=== PATIENT | female | born 1955 | race Caucasian/White ===

== ENCOUNTER 2017-02-12 06:23 | Inpatient (IN) ==
[2017-02-12] MEDS ORDERED: Albuterol 2.5 MG/3 ML NEBULIZER ONE (06:52)
--- NOTE | 2017-02-12 07:07 | Anesthesia Evaluation PreOp ---
Date of Encounter: 02/12/17 Time of Encounter: 07:05 - Past History Planned Operation: EGD Cardiac History: CO, CHF, Hyperlipidemia, Cardiac Surgery (CABGx3), Cardiac Stent, Other (CAD) Pulmonary History: Denies Any Significant HX, Smoker, Pack/yr (2ppd 40+ years), COPD, TERESE Dx EGG GRADER History: Other (peripheral neuropathy, Depression/Anxiety) Other Medical History: Renal (satage III CRD, Stones), Diabetes Type II, GERD Anesthesia History: Past Anesthesia (CABG, tubal, B. TKR, [place], Bladder Tuck, EGD) : No Alcohol Use: none Drug use: none Medications and Allergies Unable To Obtain [Unable to Obtain] 02/12/17 [History] Allergies fenofibrate Adverse Reaction (Verified 02/12/17 07:04) Muscle Pain metformin Adverse Reaction (Verified 02/12/17 07:04) Diarrhea Oxycodone [From OxyContin] Adverse Reaction (Verified 02/12/17 07:04) Hallucinating rosuvastatin [From Crestor] Adverse Reaction (Verified 02/12/17 07:04) Muscle Pain Ggxcmim-Ufh-Hdb Reductase Inhibitor [Statins] Adverse Reaction (Verified 07:04) Muscle Pain - Meds/Allergy Pre-op Review Medications Reviewed: Yes Allergies Reviewed: Yes Beta Blockers on Current Med List: Yes If Beta Blockers taken, Date/Time (Last Dose taken): none taken for months Anesthesia Results - Labs Laboratory Tests 11/08/15 09/04/16 09/04/16 15:51 16:19 16:19 WBC 13.7 H Hgb 14.8 Hct 45.5 H Plt Count 338 Sodium 137 Potassium 4.6 H Chloride 102 Carbon Dioxide 25 BUN 6 L Creatinine 1.00 - Imaging EKG: image reviewed (SR pvc's, IRBBB, poss old INf CO) Anesthesia Exam O2 Sat Height 1.68 m Height 1.68 m Height 1.68 m Weight 110.223 kg Weight 110.223 kg Weight 110.223 kg O2 Sat by Pulse Oximetry 92 O2 Sat by Pulse Oximetry 92 Vital Signs Temp Pulse Resp BP Pulse Ox 98.8 F 87 18 140/82 92 L 02/12/17 06:45 02/12/17 06:45 02/12/17 06:45 02/12/17 06:45 02/12/17 06:45 - HEENT Pupil (Motor): Pupils equal, EOMI Mallampati: III Teeth: Edentulous Oral Opening: Greater than 3 - EGG GRADER LOC: Oriented EGG GRADER Motor: Normal RUE, Normal LUE, Normal RLE, Normal LLE, Normal Face EGG GRADER Sensory: Normal: RUE, LUE, RLE, LLE, Face - Cardiac Rhythm: Irregular Murmur: None JVD: No Carotid Bruit: No - Pulmonary Breath Sounds: bilateral Clear Respiratory Effort: Symmetrical Anesthesia Assess/Plan ASA Score: 4 Modified [place] Scale for Level of Consciousness: Cooperative, oriented, and tranquil Anesthetic Plan: MAC Autologous Blood: Yes Monitoring Plan: Standard Monitors Recovery Plan: Other
[2017-02-12] MEDS ORDERED: Ringers Solution, Lactated 1,000 ML IVC SCH (07:15)
[2017-02-12] MEDS ORDERED: *HR* Promethazine 25 MG/ML VIAL IVP ONE (07:37)
--- NOTE | 2017-02-12 07:40 | History & Physical Report ---
Date of Encounter: 02/12/17 Time of Encounter: 07:40 24 Hour HP Update - Instructions Instructions: If the History and Physical is less than 30 days old and was completed prior to A.M. admission and or procedure and has NOT been updated on calendar day of procedure please complete this update prior to performing procedure. - Update Patient reports changes in Medical Condition: Yes Changes in assessment/condition: Yes Changes in Medication: No Preop tests/diagnostics Reviewed: Yes Surgery Remains Indicated: Yes Consent for Planned Operative Procedure(s) Verified: Yes - Pre-Operative Checklist Prophylactic Antibiotic Ordered: No Home Medications Include Beta Ryanne: No Is VTE Prophylaxis Indicated?: NO
[2017-02-12] MEDS ORDERED: Simethicone 40 MG/0.6 ML MLS IR ONE (07:41)
[2017-02-12] MEDS ORDERED: Tetracaine/Benzocaine/Butamben 200MG/SPRAY (100SPY/BOT) MM ONE (07:41)
--- NOTE | 2017-02-12 08:43 | Anesthesia Evaluation Post Op ---
Date of Encounter: 02/12/17 Time of Encounter: 08:41 - Vital Signs Vital Signs: 139/57 hr 90 sp02 97 on 4Lnc - Lungs Lungs: Clear Ascult./Percussion - Airway Airway: Non-obstructed - Cardiovascular Irregular Rate (PVCs), Baseline Rhythm - Mental Status Mental Status: Alert & Oriented, Answers Appropriately - Pain Pain Scale: 0 Pain Scale used: Numeric (1 - 10) - Nausea Vomiting Nausea Vomiting: Not Present - Hydration Hydration: NPO, Has not voided - Discharge PostOp Status: Transfer Patient to floor
[2017-02-12] MEDS ORDERED: Lidocaine -MPF 2% 5 ML VIAL INFILT ONE (09:21)
[2017-02-12] MEDS ORDERED: *HR* Promethazine 25 MG/ML VIAL IVP PRN (09:21)
[2017-02-12] MEDS ORDERED: Ondansetron 4 MG/2 ML VIAL IVP PRN (09:21)
[2017-02-12] MEDS ORDERED: Ondansetron 4 MG/2 ML VIAL IVP ONE (09:21)
[2017-02-12] MEDS ORDERED: *HR* Metoprolol 5 MG/5 ML VIAL IVP PRN (09:21)
[2017-02-12] MEDS ORDERED: Naloxone 0.4 MG/ML INJ IVP PRN (09:21)
[2017-02-12] MEDS ORDERED: *HR* Propofol 200 MG/20 ML VIAL IVP ONE (09:21)
[2017-02-12] MEDS ORDERED: Lidocaine -MPF 1% 5 ML AMPUL INFILT ONE (09:27)
[2017-02-12 09:53] LABS: Basophils # 0.2 K/mcL (0.0-0.2); Basophils % 1.2 %; Eosinophils # 0.2 K/mcL (0.0-0.6); Eosinophils % 1.6 %; Hematocrit 43.2 % (35.3-44.9); Hemoglobin 13.9 g/dL (11.5-15.4); Immature Granulocytes % 0.5 % (0-4); Immature Platelets 5.4 % (1.1-6.1); Lymphocytes % 15.1 %; Mean Corpuscular HGB Conc 32.2 g/dL (31.6-35.5); Mean Corpuscular Hemoglobin 27.1 pg (28.0-33.3); Mean Corpuscular Volume 84.2 fL (83.0-100.0); Mean Platelet Volume 10.2 fL (9.4-12.4); Monocytes # 0.9 K/mcL (0.0-1.3); Monocytes % 6.6 %; Platelet Count 314 K/mcL (140-400); Red Blood Count 5.13 M/mcL (3.82-4.97)
[2017-02-12 10:01] LABS: INR 1.5; Prothrombin Time 15.8 Seconds (9.4-12.1)
[2017-02-12 10:07] LABS: Alanine Aminotransferase 7 Units/L (0-55); Albumin 2.9 g/dL (3.5-5.0); Albumin/Globulin Ratio 0.8 (1.1-2.2); Alkaline Phosphatase 171 Units/L (38-126); Aspartate Amino Transferase 21 Units/L (5-34); BUN/Creatinine Ratio 10 (6-26); Bilirubin,Direct 0.8 mg/dL (0.0-0.5); Bilirubin,Indirect 0.6 mg/dL (0.0-1.2); Bilirubin,Total 1.4 mg/dL (0.2-1.2); Blood Urea Nitrogen 8 mg/dL (7-20); Calcium 8.9 mg/dL (8.6-10.8); Carbon Dioxide 26 mEq/L (19-29); Chloride 99 mEq/L (98-109); Globulin 3.5 g/dL (2.4-3.5); Glucose 103 mg/dL (70-99); Magnesium 1.4 mg/dL (1.6-2.6); Osmolality,Calculated 287 (280-300); Phosphorous 3.8 mg/dL (2.3-4.7); Potassium 2.7 mEq/L (3.5-4.5); Sodium 139 mEq/L (136-145); Total Protein 6.4 g/dL (6.0-8.3); eGFR For African Americans > 60 (> 60); eGFR For Non-African Americans > 60 (> 60)
[2017-02-12] MEDS ORDERED: 0.9 % Sodium Chloride 1,000 ML IVC SCH (10:15)
[2017-02-12] MEDS ORDERED: Potassium Chloride 40 MEQ, Lidocaine 1% 2 ML in D5% in Water 500 ML IVPB ONE (10:41)
[2017-02-12] MEDS ORDERED: Potassium Chloride 20 MEQ, Lidocaine 1% 2 ML in D5% in Water 250 ML IVPB ONE (10:43)
[2017-02-12] MEDS ORDERED: Magnesium Sulfate 2 GM in D5% in Water 100 ML IVPB ONE (10:44)
[2017-02-12] MEDS ORDERED: D5% in 0.45% NACL w KCl 20 MEQ/1,000 ML MLS IVC SCH (10:45)
[2017-02-12] MEDS: *HR* HYDROmorphone (PF) 1 MG/ML SYRINGE IVP PRN ×4 (11:15→20:56)
--- NOTE | 2017-02-12 14:44 | General Surg History&Physical ---
<Jhoana Eckert - Last Filed: 02/12/17 14:39> Date of Encounter: 02/12/17 Time of Encounter: 14:00 Assessment and Plan (1) Mass of esophagus Current Visit: Yes Status: Acute The assessment and plan as outlined above was discussed with the patient and/or family members who expressed understanding and agreement. All questions were answered. May have clear liquid diet PICC line placement TPN start today- Total fluid rate 100ml/hour CT scan of chest/abdomen/pelvis Check labs- CBC, BMP, Hepatic panel, Coags Oncology consults Pathology pending Will likely need J-tube placement (2) Diabetes mellitus Current Visit: Yes Status: Chronic The assessment and plan as outlined above was discussed with the patient and/or family members who expressed understanding and agreement. All questions were answered. Diabetic modifications with clear liquid diet Change MIV to 0.9 Monitor blood sugar Low sliding scale insulin coverage ACHS Will monitor and adjust as necessary Qualifiers: Diabetes mellitus type: type 2 Diabetes mellitus complication status: without complication Diabetes mellitus tank terminal gauger insulin use: without tank terminal gauger use Qualified Code(s): E11.9 - Type 2 diabetes mellitus without complications (3) Obesity (BMI 30-39.9) Current Visit: Yes Status: Chronic The assessment and plan as outlined above was discussed with the patient and/or family members who expressed understanding and agreement. All questions were answered. (4) Sleep apnea Current Visit: Yes Status: Acute The assessment and plan as outlined above was discussed with the patient and/or family members who expressed understanding and agreement. All questions were answered. Consult respiratory CPAP as needed while sleeping Qualifiers: Sleep apnea type: obstructive Qualified Code(s): G47.33 - Obstructive sleep apnea (adult) (pediatric) (5) Hypertension Current Visit: Yes Status: Chronic The assessment and plan as outlined above was discussed with the patient and/or family members who expressed understanding and agreement. All questions were answered. Metoprolol 5mg IV every 6 hours Will continue to monitor and adjust as necessary Qualifiers: Hypertension type: essential hypertension Qualified Code(s): I10 - Essential (primary) hypertension (6) Coronary artery disease Current Visit: Yes Status: Chronic The assessment and plan as outlined above was discussed with the patient and/or family members who expressed understanding and agreement. All questions were answered. Qualifiers: Coronary Disease-Associated Artery/Lesion type: bypass graft Tribe vs. transplanted heart: [place] heart Associated angina: without angina Qualified Code(s): I25.810 - Atherosclerosis of coronary artery bypass graft(s) without angina pectoris (7) DVT prophylaxis Current Visit: Yes Status: Acute The assessment and plan as outlined above was discussed with the patient and/or family members who expressed understanding and agreement. All questions were answered. Heparin 5,000 units SQ twice daily for DVT prophylaxis History of Present Illness Chief complaint: Esophageal mass HPI: Ms. Serra is a 61 year old female who has been seen and evaluated by Dr. Rapp for complaints of epigastric pain, nausea/vomiting, unintentional weight loss. She reports epigastric discomfort for approximately the past 3-5 months. She reports that the pain is worse after eating. She does report episodes of hematemesis. Admits to diarrhea which she describes as green and watery with coffee grounds. Reports being incontinent of stool. Also reports being incontinent of urine. She does have chronic heartburn which she states has been controlled with ranitidine and omeprazole. She reports a 100lb weight loss over the past 3 months which has been untintentional. She is s/p EGD today with Dr. Rapp and was found to have a 15cm distal esophageal mass. She has been admitted to the hospital for further work-up treatment. Past Med Surg Social Fam HX - Past Medical History Source: patient, old records reviewed Medical history: CHF, coronary artery disease, diabetes, hyperlipidemia, hypertension, kidney stones, myocardial infarction, other (obesity, sleep apnea , peripheral neuropathy, osteoarthritis, pancreatitis, allergic rhinitis) Psychiatric history: anxiety, depression - Past Surgical History Surgical History: angioplasty/stent, coronary bypass (CABG), hysterectomy ( complete), knee replacement (bilateral, Right total knee revision), other ( tubal ligation, tonsillectomy, bladder tuck X 2, colonoscopy, EGD 02/12/17) - Social History Smoking Status: Current every day smoker Alcohol use: none Drug use: none Current living situation: Home - Independent Activity Level: Independent ambulation - Family History Mother Living Status: Still Living Hx Family Cardiac Disorders: Yes (HTN) Hx Family Endocrine Disorder: Yes (Thyroid disease) Hx Family Autoimmune Disorders: Yes (Lupus) Father Living Status: Age at : 78 Hx Family Cardiac Disorders: Yes (CAD) Hx Family Endocrine Disorder: Yes (Diabetes mellitus) Hx Family Musculoskeletal Disorders: Yes (Fibromyalgia) Hx Family Neurologic Disorders: Yes (Alzheimers dementia) Brother Living Status: Still Living Hx Family Cardiac Disorders: Yes (HTN) Hx Family Respiratory Disorders: Yes (asthma) Hx Family Endocrine Disorder: Yes (diabetes mellitus) Medications and Allergies No Known Home Drugs 02/12/17 [History] Allergies fenofibrate Adverse Reaction (Verified 02/12/17 07:04) Muscle Pain metformin Adverse Reaction (Verified 02/12/17 07:04) Diarrhea Oxycodone [From OxyContin] Adverse Reaction (Verified 02/12/17 07:04) Hallucinating rosuvastatin [From Crestor] Adverse Reaction (Verified 02/12/17 07:04) Muscle Pain Gmgrfeq-Ulf-Gyg Reductase Inhibitor [Statins] Adverse Reaction (Verified 07:04) Muscle Pain Review of Systems All systems PM: reviewed and no additional remarkable complaints except as stated (in the HPI) All systems PM: A 10-system review of systems was performed and is negative for pertinent findings except as documented above in the HPI. General Surgery Exam Initial Vital Signs Temp Pulse Resp BP Pulse Ox 98.8 F 87 18 140/82 92 L 02/12/17 06:45 02/12/17 06:45 02/12/17 06:45 02/12/17 06:45 02/12/17 06:45 - General physical appearance well developed, no distress, chronically ill, obese - Eyes normal ocular movement - ENT normal mucosa, atraumatic, normocephalic - Neck trachea midline - Respiratory normal respiratory effort, clear to auscultation - Cardiovascular Cardiovascular exam: Present: RRR, 15, 16 - Abdomen Abdomen general surgery: Present: bowel sounds present, soft, tender Abdominal Tenderness: Present: epigastic - Integumentary Integumentary general surgery: Present: warm and dry - Neurologic Present: CN 2-12 grossly intact - Musculoskeletal Present: normal gait, normal posture - Psychiatric Psychiatric general surgery: Present: appropriate, oriented to person, oriented to place, oriented to time, speech is normal, memory intact Results - Labs 02/12/17 09:37 02/12/17 09:37 Abnormal lab results WBC 13.3 K/mcL (4.3-11.1) H 02/12/17 09:37 RBC 5.13 M/mcL (3.82-4.97) H 02/12/17 09:37 MCH 27.1 pg (28.0-33.3) L 02/12/17 09:37 RDW 15.0 % (11.5-14.5) H 02/12/17 09:37 Neutrophils # 10.0 K/mcL (1.6-8.9) H 02/12/17 09:37 PT 15.8 Seconds (9.4-12.1) H 02/12/17 09:37 Potassium 2.7 mEq/L (3.5-4.5) L 02/12/17 09:37 Glucose 103 mg/dL (70-99) H 02/12/17 09:37 Magnesium 1.4 mg/dL (1.6-2.6) L 02/12/17 09:37 Total Bilirubin 1.4 mg/dL (0.2-1.2) H 02/12/17 09:37 Direct Bilirubin 0.8 mg/dL (0.0-0.5) H 02/12/17 09:37 Alkaline Phosphatase 171 Units/L (38-126) H 02/12/17 09:37 Albumin 2.9 g/dL (3.5-5.0) L 02/12/17 09:37 Albumin/Globulin Ratio 0.8 (1.1-2.2) L 02/12/17 09:37 Prealbumin 7.0 mg/dL (16.0-38.0) L 02/12/17 09:37 Diabetes panel 02/12/17 Range/Units 09:37 Sodium 139 (136-145) mEq/L Potassium 2.7 L (3.5-4.5) mEq/L Chloride 99 (98-109) mEq/L Carbon Dioxide 26 (19-29) mEq/L BUN 8 (7-20) mg/dL Creatinine 0.77 (0.57-1.11) mg/dL Glucose 103 H (70-99) mg/dL Calcium 8.9 (8.6-10.8) mg/dL AST 21 (5-34) Units/L ALT 7 (0-55) Units/L Alkaline Phosphatase 171 H (38-126) Units/L Albumin 2.9 L (3.5-5.0) g/dL Calcium panel 02/12/17 Range/Units 09:37 Calcium 8.9 (8.6-10.8) mg/dL Phosphorus 3.8 (2.3-4.7) mg/dL Albumin 2.9 L (3.5-5.0) g/dL Pituitary panel 02/12/17 Range/Units 09:37 Sodium 139 (136-145) mEq/L Potassium 2.7 L (3.5-4.5) mEq/L Chloride 99 (98-109) mEq/L Carbon Dioxide 26 (19-29) mEq/L BUN 8 (7-20) mg/dL Creatinine 0.77 (0.57-1.11) mg/dL Glucose 103 H (70-99) mg/dL Calcium 8.9 (8.6-10.8) mg/dL Adrenal panel 02/12/17 Range/Units 09:37 Sodium 139 (136-145) mEq/L Potassium 2.7 L (3.5-4.5) mEq/L Chloride 99 (98-109) mEq/L Carbon Dioxide 26 (19-29) mEq/L BUN 8 (7-20) mg/dL Creatinine 0.77 (0.57-1.11) mg/dL Glucose 103 H (70-99) mg/dL Calcium 8.9 (8.6-10.8) mg/dL Total Bilirubin 1.4 H (0.2-1.2) mg/dL AST 21 (5-34) Units/L ALT 7 (0-55) Units/L Alkaline Phosphatase 171 H (38-126) Units/L Albumin 2.9 L (3.5-5.0) g/dL All other labs normal. - Attending Attestation I examined this patient and my medical decision-making was reviewed with the HOME THEATER INSTALLER/PA/Advanced Practice Nurse/Resident Physician. I agree with the documented findings, disposition and treatment plan as described except to the extent set forth below. <Reny Rapp - Last Filed: 02/13/17 08:58> Assessment and Plan (1) Mass of esophagus Current Visit: Yes Status: Acute discussed CT scan results with patient, metastatic disease, she is not an operative candidate, will see oncology and see what their recommendations regarding chemo/radiation may be. She may benefit with a palliative peg tube, discussed with patient. Dr Luna is going to assume care in my abscence, patient aware. The assessment and plan as outlined above was discussed with the patient and/or family members who expressed understanding and agreement. All questions were answered. History of Present Illness HPI: Ms. Serra is a 61 year old female Review of Systems All systems PM: A 10-system review of systems was performed and is negative for pertinent findings except as documented above in the HPI. General Surgery Exam Initial Vital Signs Temp Pulse Resp BP Pulse Ox 98.8 F 87 18 140/82 92 L 02/12/17 06:45 02/12/17 06:45 02/12/17 06:45 02/12/17 06:45 02/12/17 06:45 - General physical appearance no distress, no pain, obese - Eyes PERRL, normal ocular movement - ENT normal mucosa, normocephalic - Respiratory normal expansion, clear to auscultation - Cardiovascular Cardiovascular exam: Present: RRR - Abdomen Abdomen general surgery: Present: bowel sounds present, soft, tender Abdominal Tenderness: Present: epigastic - Integumentary Integumentary general surgery: Present: warm and dry - Musculoskeletal Present: normal gait, normal posture - Psychiatric Psychiatric general surgery: Present: A&Ox3, speech is normal, tearful Results - Labs 02/13/17 03:55 02/13/17 03:55 Abnormal lab results WBC 12.2 K/mcL (4.3-11.1) H 02/13/17 03:55 RBC 5.06 M/mcL (3.82-4.97) H 02/13/17 03:55 MCH 26.7 pg (28.0-33.3) L 02/13/17 03:55 MCHC 31.0 g/dL (31.6-35.5) L 02/13/17 03:55 RDW 15.0 % (11.5-14.5) H 02/13/17 03:55 PT 15.8 Seconds (9.4-12.1) H 02/12/17 09:37 Sodium 135 mEq/L (136-145) L 02/13/17 03:55 Potassium 3.3 mEq/L (3.5-4.5) L 02/13/17 03:55 Chloride 96 mEq/L (98-109) L 02/13/17 03:55 POC Glucose 115 (58-89) H 02/13/17 07:19 Calculated Osmolality 278 (280-300) L 02/13/17 03:55 Ionized Calcium 1.11 mmol/L (1.15-1.35) L 02/13/17 03:55 Total Bilirubin 1.4 mg/dL (0.2-1.2) H 02/12/17 09:37 Direct Bilirubin 0.8 mg/dL (0.0-0.5) H 02/12/17 09:37 Alkaline Phosphatase 171 Units/L (38-126) H 02/12/17 09:37 Albumin 2.9 g/dL (3.5-5.0) L 02/12/17 09:37 Albumin/Globulin Ratio 0.8 (1.1-2.2) L 02/12/17 09:37 Prealbumin 7.0 mg/dL (16.0-38.0) L 02/12/17 09:37 Triglycerides 208 mg/dL (< 150) H 02/13/17 03:55 Diabetes panel 02/12/17 02/13/17 Range/Units 09:37 03:55 Sodium 139 135 L (136-145) mEq/L Potassium 2.7 L 3.3 L (3.5-4.5) mEq/L Chloride 99 96 L (98-109) mEq/L Carbon Dioxide 26 29 (19-29) mEq/L BUN 8 7 (7-20) mg/dL Creatinine 0.77 0.85 (0.57-1.11) mg/dL Glucose 103 H 99 (70-99) mg/dL Calcium 8.9 8.6 (8.6-10.8) mg/dL AST 21 (5-34) Units/L ALT 7 (0-55) Units/L Alkaline Phosphatase 171 H (38-126) Units/L Albumin 2.9 L (3.5-5.0) g/dL Triglycerides 208 H (< 150) mg/dL Calcium panel 02/12/17 02/13/17 Range/Units 09:37 03:55 Calcium 8.9 8.6 (8.6-10.8) mg/dL Phosphorus 3.8 3.9 (2.3-4.7) mg/dL Albumin 2.9 L (3.5-5.0) g/dL Pituitary panel 03/21/17 03/22/17 Range/Units 09:37 03:55 Sodium 139 135 L (136-145) mEq/L Potassium 2.7 L 3.3 L (3.5-4.5) mEq/L Chloride 99 96 L (98-109) mEq/L Carbon Dioxide 26 29 (19-29) mEq/L BUN 8 7 (7-20) mg/dL Creatinine 0.77 0.85 (0.57-1.11) mg/dL Glucose 103 H 99 (70-99) mg/dL Calcium 8.9 8.6 (8.6-10.8) mg/dL Adrenal panel 02/12/17 02/13/17 Range/Units 09:37 03:55 Sodium 139 135 L (136-145) mEq/L Potassium 2.7 L 3.3 L (3.5-4.5) mEq/L Chloride 99 96 L (98-109) mEq/L Carbon Dioxide 26 29 (19-29) mEq/L BUN 8 7 (7-20) mg/dL Creatinine 0.77 0.85 (0.57-1.11) mg/dL Glucose 103 H 99 (70-99) mg/dL Calcium 8.9 8.6 (8.6-10.8) mg/dL Total Bilirubin 1.4 H (0.2-1.2) mg/dL AST 21 (5-34) Units/L ALT 7 (0-55) Units/L Alkaline Phosphatase 171 H (38-126) Units/L Albumin 2.9 L (3.5-5.0) g/dL All other labs normal. - Imaging CT scan - abdomen: report reviewed, image reviewed CT scan - chest: report reviewed, image reviewed CT scan - pelvis: report reviewed, image reviewed US - abdomen: report reviewed (CT scan were personally reviewed by myself and results discussed with patient) - Attending Attestation I examined this patient and my medical decision-making was reviewed with the HOME THEATER INSTALLER/PA/Advanced Practice Nurse/Resident Physician. I agree with the documented findings, disposition and treatment plan as described except to the extent set forth below.
[2017-02-12] MEDS ORDERED: 0.9 % Sodium Chloride w KCl 20 MEQ/1,000 ML MLS IVC SCH (15:00)
[2017-02-12] MEDS ORDERED: Dextrose Gel 15 GM PO PRN ×2 (15:01)
[2017-02-12] MEDS ORDERED: *HR* Dextrose 50 % in Water (Syg) 50 ML SYRINGE IVP PRN (15:01)
[2017-02-12] MEDS: Ondansetron 4 MG/2 ML VIAL IVP PRN ×2 (16:43→21:01)
[2017-02-12] MEDS: *HR* Heparin 5,000 UNIT/ML VIAL SQ SCH (16:43)
[2017-02-12] MEDS ORDERED: Clinimix E 5%-15% SOLUTION 2,000 ML with MVI, adult with vitamin K 10 ML IVC SCH (17:00)
[2017-02-12] MEDS: Insulin LISPRO 300 UNITS/3 ML VIAL SQ SCH (17:26)
[2017-02-12] MEDS: *HR* LORazepam 2 MG/ML VIAL IVP PRN (20:58)
[2017-02-12] MEDS ORDERED: Insulin LISPRO 300 UNITS/3 ML VIAL SQ SCH (21:00)
[2017-02-12] MEDS: 0.9 % Sodium Chloride 1,000 ML IVC SCH (21:04)
[2017-02-12] MEDS: Pantoprazole 40 MG VIAL IVP SCH (21:04)
[2017-02-13] MEDS: *HR* HYDROmorphone (PF) 1 MG/ML SYRINGE IVP PRN ×6 (02:52→23:27)
[2017-02-13 04:37] LABS: Basophils # 0.2 K/mcL (0.0-0.2); Basophils % 1.6 %; Eosinophils # 0.3 K/mcL (0.0-0.6); Eosinophils % 2.8 %; Hematocrit 43.6 % (35.3-44.9); Hemoglobin 13.5 g/dL (11.5-15.4); Immature Granulocytes % 0.6 % (0-4); Lymphocytes # 1.8 K/mcL (0.6-4.6); Lymphocytes % 14.5 %; Mean Corpuscular Hemoglobin 26.7 pg (28.0-33.3); Mean Corpuscular Volume 86.2 fL (83.0-100.0); Monocytes # 1.1 K/mcL (0.0-1.3); Monocytes % 8.9 %; Neutrophils # 8.7 K/mcL (1.6-8.9); Platelet Count 292 K/mcL (140-400); Red Blood Count 5.06 M/mcL (3.82-4.97); Segmented Neutrophils % 71.6 %
[2017-02-13 04:55] LABS: Ionized Calcium 1.11 mmol/L (1.15-1.35)
[2017-02-13 04:56] LABS: BUN/Creatinine Ratio 8 (6-26); Blood Urea Nitrogen 7 mg/dL (7-20); Calcium 8.6 mg/dL (8.6-10.8); Carbon Dioxide 29 mEq/L (19-29); Chloride 96 mEq/L (98-109); Glucose 99 mg/dL (70-99); Magnesium 1.8 mg/dL (1.6-2.6); Osmolality,Calculated 278 (280-300); Phosphorous 3.9 mg/dL (2.3-4.7); Potassium 3.3 mEq/L (3.5-4.5); Sodium 135 mEq/L (136-145); Triglycerides 208 mg/dL (< 150); eGFR For African Americans > 60 (> 60); eGFR For Non-African Americans > 60 (> 60)
[2017-02-13] MEDS: *HR* Heparin 5,000 UNIT/ML VIAL SQ SCH ×2 (06:10→17:55)
--- NOTE | 2017-02-13 08:10 | Oncology Inp Consult Note ---
Date of Encounter: 02/13/17 Time of Encounter: 08:06 - Data of Consult Patient: new to practice Consult date: 02/13/17 Requesting Physician: Reny Rapp MD Primary Care Provider: Juany Coronado CNP - Consult Narrative Reason for consult: Suspected esophageal cancer History of present illness: Ms. Serra is a 61 year old female patient of Juany Niurkamargot MIKEY seen in consultation regarding suspected esophageal cancer. She presented with progressive dysphagia of 3-5 months duration associated with epigastric pain and up to 100 pound weight loss. Her symptoms were evaluated with an outpatient barium swallow test on 02/06/17 which revealed an irregular, masslike lesion in the distal esophagus extending through the GE junction concerning for malignancy. She was hospitalized due to progressive symptoms of failure to thrive at home and had an EGD 02/12/17 which revealed a large, fungating, infiltrative circumferential mass extending from the distal esophagus to the cardia of the stomach. Biopsies were obtained and pathology is pending. She's also had systemic imaging including CT chest, abdomen, pelvis on 02/12/17 which showed innumerable lesions throughout the liver and lungs suspicious for widespread metastatic disease in addition to masslike thickening in the distal esophagus extending to the cardia of the stomach. She also has regional lymphadenopathy involving the gastrohepatic and retroperitoneal nodes. Omental caking and also noted with possible slight ascites. Oncology is consulted re: what appears to be a new diagnosis of metastatic esophageal cancer. Dr. Rapp was kind enough to discuss patient's case with me regarding reason for consultation. Due to concern about progressive dysphagia with associated weight loss, patient has been started on TPN and is in the process of feeding tube placement. Question arose prior to her systemic imaging regarding placement of G-tube versus J-tube in anticipation of possible esophagectomy. Patient seen and examined at bedside. Chart review for details of ongoing care by hospital seen. At the time of evaluation, she is doing quite well. No new physical complaints. Rest of past medical, surgical, family, social history detailed below and verified with patient today. Review of systems: 12 point review of systems performed with patient and positive findings noted in history of present illness. All other systems are negative: Physical exam: Vital Signs Temp 97.4 F L 02/13/17 07:15 Pulse 81 02/13/17 07:15 Resp 16 02/13/17 07:15 BP 123/78 02/13/17 07:15 Pulse Ox 95 02/13/17 07:15 GENERAL: Alert and oriented, comfortable appearing. Mental Status: Affect appropriate for circumstances HEENT: Sclerae anicteric. No mucositis or thrush. No other oral or pharyngeal lesions or erythema. Skin: No rashes or petechiae. No evidence of skin malignancy Lymph nodes: No cervical, supraclavicular, axillary, or inguinal adenopathy. Lungs: Clear to auscultation bilaterally. Clear to percussion bilaterally. Cardiovascular: Regular rate and rhythm. No gallops, murmurs, or rubs. Abdomen: Soft, nontender; No organomegaly or masses palpable. Extremities: No edema. No calf swelling or tenderness. No joint deformity. Neurologic: Alert, normal gait; no focal weakness or sensory abnormalities. Results: Laboratory Last Values WBC 12.2 K/mcL (4.3-11.1) H 02/13/17 03:55 RBC 5.06 M/mcL (3.82-4.97) H 02/13/17 03:55 Hgb 13.5 g/dL (11.5-15.4) 02/13/17 03:55 Hct 43.6 % (35.3-44.9) 02/13/17 03:55 MCV 86.2 fL (83.0-100.0) 02/13/17 03:55 MCH 26.7 pg (28.0-33.3) L 02/13/17 03:55 MCHC 31.0 g/dL (31.6-35.5) L 02/13/17 03:55 RDW 15.0 % (11.5-14.5) H 02/13/17 03:55 Plt Count 292 K/mcL (140-400) 02/13/17 03:55 MPV 10.0 fL (9.4-12.4) 02/13/17 03:55 Immature Gran % 0.6 % (0-4) 02/13/17 03:55 Seg Neutrophils % 71.6 % 02/13/17 03:55 Lymphocytes % 14.5 % 02/13/17 03:55 Monocytes % 8.9 % 02/13/17 03:55 Eosinophils % 2.8 % 02/13/17 03:55 Basophils % 1.6 % 02/13/17 03:55 Neutrophils # 8.7 K/mcL (1.6-8.9) 02/13/17 03:55 Lymphocytes # 1.8 K/mcL (0.6-4.6) 02/13/17 03:55 Monocytes # 1.1 K/mcL (0.0-1.3) 02/13/17 03:55 Eosinophils # 0.3 K/mcL (0.0-0.6) 02/13/17 03:55 Basophils # 0.2 K/mcL (0.0-0.2) 02/13/17 03:55 Immature Plt Fraction 5.4 % (1.1-6.1) 02/12/17 09:37 PT 15.8 Seconds (9.4-12.1) H 02/12/17 09:37 INR 1.5 02/12/17 09:37 Sodium 135 mEq/L (136-145) L 02/13/17 03:55 Potassium 3.3 mEq/L (3.5-4.5) L 02/13/17 03:55 Chloride 96 mEq/L (98-109) L 02/13/17 03:55 Carbon Dioxide 29 mEq/L (19-29) 02/13/17 03:55 BUN 7 mg/dL (7-20) 02/13/17 03:55 Creatinine 0.85 mg/dL (0.57-1.11) 02/13/17 03:55 Est GFR ( Amer) > 60 (> 60) 02/13/17 03:55 Est GFR (Non-Af Amer) > 60 (> 60) 02/13/17 03:55 BUN/Creatinine Ratio 8 (6-26) 02/13/17 03:55 Glucose 99 mg/dL (70-99) 02/13/17 03:55 POC Glucose 115 (58-89) H 02/13/17 07:19 Calculated Osmolality 278 (280-300) L 02/13/17 03:55 Calcium 8.6 mg/dL (8.6-10.8) 02/13/17 03:55 Ionized Calcium 1.11 mmol/L (1.15-1.35) L 02/13/17 03:55 Phosphorus 3.9 mg/dL (2.3-4.7) 02/13/17 03:55 Magnesium 1.8 mg/dL (1.6-2.6) 02/13/17 03:55 Total Bilirubin 1.4 mg/dL (0.2-1.2) H 02/12/17 09:37 Direct Bilirubin 0.8 mg/dL (0.0-0.5) H 02/12/17 09:37 Indirect Bilirubin 0.6 mg/dL (0.0-1.2) 02/12/17 09:37 AST 21 Units/L (5-34) 02/12/17 09:37 ALT 7 Units/L (0-55) 02/12/17 09:37 Alkaline Phosphatase 171 Units/L (38-126) H 02/12/17 09:37 Serum Total Protein 6.4 g/dL (6.0-8.3) 02/12/17 09:37 Albumin 2.9 g/dL (3.5-5.0) L 02/12/17 09:37 Globulin 3.5 g/dL (2.4-3.5) 02/12/17 09:37 Albumin/Globulin Ratio 0.8 (1.1-2.2) L 02/12/17 09:37 Prealbumin 7.0 mg/dL (16.0-38.0) L 02/12/17 09:37 Triglycerides 208 mg/dL (< 150) H 02/13/17 03:55 Radiographic studies: I personally reviewed and interpreted patient's most recent imaging studies dated 02/12/17. I discussed the findings with the patient today. Abdomen/Pelvis CT 02/12/17 13:45 IMPRESSION: There is diffuse metastatic disease, with innumerable metastatic lesions throughout the liver and lungs bilaterally. There is also an area of masslike thickening seen within the distal esophageal lumen extending into the region of the gastric cardia, suspicious for esophageal or gastric carcinoma. There is also direct spread versus metastatic lymphadenopathy, with a large conglomeration of lymph nodes seen in the gastrohepatic ligament measuring 6.8 x 7.7 cm which abuts the gastric cardia. Metastatic periportal and retroperitoneal lymphadenopathy is also identified. Omental peritoneal caking is also seen with a small amount of possible malignant ascites noted in the pelvis. Questionable metastatic lesion also noted within the spleen versus a small cyst or hemangioma. There is mild left perinephric stranding, with a nonobstructive calculus in the lower pole of the left kidney. Cannot exclude a recently passed stone, with mild periureteral stranding seen proximally on the left. There is a small subcutaneous soft tissue lesions seen within the patient's back, just to the left of midline, which appears to abut the skin surface and may represent a small sebaceous cyst. A metastatic lesion is felt less likely though cannot be entirely excluded. There is an 8.3 mm nodule identified in the left thyroid lobe. Recommendations for follow-up as below, which in the setting of metastatic esophageal carcinoma, no follow-up or ultrasound is necessarily recommended unless clinically warranted. D/ / Kavon Rico MD / Kavon Rico MD Interpreting Provider: Kavon Rico MD Chest CT 02/12/17 13:45 IMPRESSION: There is diffuse metastatic disease, with innumerable metastatic lesions throughout the liver and lungs bilaterally. There is also an area of masslike thickening seen within the distal esophageal lumen extending into the region of the gastric cardia, suspicious for esophageal or gastric carcinoma. There is also direct spread versus metastatic lymphadenopathy, with a large conglomeration of lymph nodes seen in the gastrohepatic ligament measuring 6.8 x 7.7 cm which abuts the gastric cardia. Metastatic periportal and retroperitoneal lymphadenopathy is also identified. Omental peritoneal caking is also seen with a small amount of possible malignant ascites noted in the pelvis. Questionable metastatic lesion also noted within the spleen versus a small cyst or hemangioma. There is mild left perinephric stranding, with a nonobstructive calculus in the lower pole of the left kidney. Cannot exclude a recently passed stone, with mild periureteral stranding seen proximally on the left. There is a small subcutaneous soft tissue lesions seen within the patient's back, just to the left of midline, which appears to abut the skin surface and may represent a small sebaceous cyst. A metastatic lesion is felt less likely though cannot be entirely excluded. There is an 8.3 mm nodule identified in the left thyroid lobe. Recommendations for follow-up as below, which in the setting of metastatic esophageal carcinoma, no follow-up or ultrasound is necessarily recommended unless clinically warranted. D/ / Kavon Rico MD / Kavon Rico MD Interpreting Provider: Kavon Rico MD Impression/recommendations: Suspected esophageal cancer: I had a detailed discussion with the patient regarding diagnostic considerations for newly detected esophageal mass associated with liver lesions. She understands that her current medical condition is compatible with malignancy until proven otherwise. We discussed NCCN guidelines for management of what appears to be metastatic esophageal cancer. If she is confirmed to have metastatic disease, she understands that this are present and incurable malignancy but we also discussed options for disease evaluation including systemic therapy and targeted therapies. Based on above, I think is reasonable to obtain a biopsy of her liver lesion by IR for confirmation. We'll also send her to testing to evaluate the benefit of anti-HER-2 therapies in her overall management. 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 We also discussed that given her incurable nature of her malignancy, nonaggressive, comfort only measures such as palliative care/hospice and not unreasonable. She is more inclined towards antineoplastic therapy which I think is reasonable given her relatively young age and well preserved physical performance status. I agree with ongoing supportive measures and have informed her that I will schedule an outpatient follow-up appointment to see her in the next one to 2 weeks for further evaluation and recommendations regarding antineoplastic therapy. Progressive dysphagia associated with weight loss: I informed the patient that given the high likelihood that she has disseminated malignancy, I do not believe she'll be an appropriate candidate for esophagectomy as such I think is reasonable to proceed with G-tube placement if technically feasible per surgery. Per my discussion with Dr. Rapp, Dr. Nobles will be seeing her later today for further discussion regarding surgical management. We'll follow the patient along side you during this hospitalization but please do not hesitate to call regarding interval hematologic questions as they arise. Thank you for your excellent ongoing care for allowing us to see her while in- house. This report was created using voice recognition software and may contain errors. It was signed but not edited to expedite communication. Past Med Surg Social Fam HX - Past Medical History Medical history: CHF, coronary artery disease, diabetes, hyperlipidemia, hypertension, kidney stones, myocardial infarction, other (obesity, sleep apnea , peripheral neuropathy, osteoarthritis, pancreatitis, allergic rhinitis) Psychiatric history: anxiety, depression - Past Surgical History Surgical History: angioplasty/stent, coronary bypass (CABG), hysterectomy ( complete), knee replacement (bilateral, Right total knee revision), other ( tubal ligation, tonsillectomy, bladder tuck X 2, colonoscopy, EGD 02/12/17) - Social History Smoking Status: Current every day smoker Alcohol use: none Drug use: none - Family History Mother Living Status: Still Living Hx Family Cardiac Disorders: Yes (HTN) Hx Family Cancer: Yes ( from lung cancer) Hx Family Endocrine Disorder: Yes (Thyroid disease) Hx Family Autoimmune Disorders: Yes (Lupus) Father Living Status: Age at : 78 Hx Family Cardiac Disorders: Yes (CAD) Hx Family Endocrine Disorder: Yes (Diabetes mellitus) Hx Family Musculoskeletal Disorders: Yes (Fibromyalgia) Hx Family Neurologic Disorders: Yes (Alzheimers dementia) Brother Living Status: Still Living Hx Family Cardiac Disorders: Yes (HTN) Hx Family Respiratory Disorders: Yes (asthma) Hx Family Endocrine Disorder: Yes (diabetes mellitus) Medications and Allergies No Known Home Drugs 02/12/17 [History] Allergies fenofibrate Adverse Reaction (Verified 02/12/17 07:04) Muscle Pain metformin Adverse Reaction (Verified 02/12/17 07:04) Diarrhea Oxycodone [From OxyContin] Adverse Reaction (Verified 02/12/17 07:04) Hallucinating rosuvastatin [From Crestor] Adverse Reaction (Verified 02/12/17 07:04) Muscle Pain Kzfdsan-[id number]-Qiu Reductase Inhibitor [Statins] Adverse Reaction (Verified 07:04) Muscle Pain Oncology - Exam - Constitutional Vitals: Temp Pulse Resp BP Pulse Ox 97.4 F L 81 16 123/78 95 02/13/17 07:15 02/13/17 07:15 02/13/17 07:15 02/13/17 07:15 02/13/17 07:15 Oncology - Results - Labs Labs: Short CBC 02/12/17 02/13/17 Range/Units 09:37 03:55 WBC 13.3 H 12.2 H (4.3-11.1) K/mcL Hgb 13.9 13.5 (11.5-15.4) g/dL Hct 43.2 43.6 (35.3-44.9) % Plt Count 314 292 (140-400) K/mcL Neutrophils # 10.0 H 8.7 (1.6-8.9) K/mcL BMP 02/12/17 02/13/17 09:37 03:55 Sodium 139 135 L Potassium 2.7 L 3.3 L Chloride 99 96 L Carbon Dioxide 26 29 BUN 8 7 Creatinine 0.77 0.85 Glucose 103 H 99 Calcium 8.9 8.6 Liver Function 02/12/17 Range/Units 09:37 Total Bilirubin 1.4 H (0.2-1.2) mg/dL Direct Bilirubin 0.8 H (0.0-0.5) mg/dL AST 21 (5-34) Units/L ALT 7 (0-55) Units/L Alkaline Phosphatase 171 H (38-126) Units/L Albumin 2.9 L (3.5-5.0) g/dL Consult Discharge Plan - Plan Referrals: Juany Coronado CNP [Primary Care Provider] - Daniel Rodrigues MD [Partnered Physician] - 02/19/17 3:10 pm
[2017-02-13] MEDS: Insulin LISPRO 300 UNITS/3 ML VIAL SQ SCH ×5 (08:15→22:26)
[2017-02-13] MEDS: Pantoprazole 40 MG VIAL IVP SCH ×2 (08:22→21:33)
[2017-02-13] MEDS ORDERED: Water for inj. (sterile) 10 ML IV ONE (10:11)
[2017-02-13] MEDS: *HR* LORazepam 2 MG/ML VIAL IVP PRN ×2 (10:22→18:50)
[2017-02-13] MEDS ORDERED: Potassium Chloride 40 MEQ, Lidocaine 1% 2 ML in D5% in Water 500 ML IVPB ONE (12:40)
--- NOTE | 2017-02-13 14:46 | General Surgery Progress Note ---
Date of Encounter: 02/13/17 Time of Encounter: 14:00 - Assessment and Plan (1) Mass of esophagus Current Visit: Yes Status: Acute May have liquid diet Continue TPN thereapy Total fluid rate 100ml/hour CT scan of chest/abdomen/pelvis- results reviewed with patient and significant other Oncology consults Pathology pending NPO after midnight Supportive care/pain control Plan for peg tube and a-port placement tentantively 02/14/[address] 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 use Qualified Code(s): E11.9 - Type 2 diabetes mellitus without complications (3) Obesity (BMI 30-39.9) Current Visit: Yes Status: Chronic (4) Sleep apnea Current Visit: Yes Status: Acute CPAP as needed Qualifiers: Sleep apnea type: obstructive Qualified Code(s): G47.33 - Obstructive sleep apnea (adult) (pediatric) (5) Hypertension Current Visit: Yes Status: Chronic Normotensive Continue to monitor and adjust as necessary Qualifiers: Hypertension type: essential hypertension Qualified Code(s): I10 - Essential (primary) hypertension (6) Coronary artery disease Current Visit: Yes Status: Chronic Qualifiers: Coronary Disease-Associated Artery/Lesion type: bypass graft [place] vs. transplanted heart: [place] heart Associated angina: without angina Qualified Code(s): I25.810 - Atherosclerosis of coronary artery bypass graft(s) without angina pectoris (7) DVT prophylaxis Current Visit: Yes Status: Acute Continue heparin 5,000 units SQ twice daily for DVT prophylaxis Subjective Patient reports: no new complaints, still having pain, tolerating liquids well, voiding w/o difficulty, afebrile Objective Vital Signs - Last 8 Hours Temp Pulse Resp BP Pulse Ox 02/13/17 12:19 97.3 F L 73 16 117/66 94 L 02/13/17 07:15 97.4 F L 81 16 123/78 95 Intake and Output 02/12/17 02/13/17 02/13/17 23:59 07:59 15:59 Intake Total 726 / 726 801 / 801 0 / 0 Output Total 500 / 500 1100 / 1100 800 / 800 Balance 226 / 226 -299 / -299 -800 / -800 Intake: IV Fluids 246 / 246 801 / 801 0 / 0 0.9 % Sodium Chloride 1, 335 / 335 0 / 0 000 ML @ 50 mls/hr IVC . Q20H JAVIER Rx#:[id number] Clinimix E 5%-15% 176 / 176 286 / 286 SOLUTION 2,000 ML @ 50 mls/hr IVC .Q24H JAVIER with M.v.i. Adult 10 ml Rx#: [id number] Intralipid 20% 250 ML @ 70 / 70 180 / 180 21 mls/hr IVPB DAILY@1700 JAVIER Rx#:[id number] Oral 480 / 480 Output: Urine 500 / 500 1100 / 1100 800 / 800 Other: Blood Glucose* 118 117 109 - General physical appearance well developed, no distress, moderate pain - Eyes normal ocular movement - ENT normal mucosa, atraumatic, normocephalic - Neck Neck exam: trachea midline - Respiratory normal respiratory effort, clear to auscultation - Cardiovascular Cardiovascular exam: Present: RRR - Abdomen Abdomen: Present: bowel sounds present, soft, tender Abdominal Tenderness: epigastic - Neurologic CN 2-12 grossly intact - Musculoskeletal normal gait, normal posture - Psychiatric oriented to time, oriented to person, oriented to place, speech is normal, memory intact - Labs 02/14/17 05:00 02/14/17 05:00 Diabetes panel 02/13/17 Range/Units 03:55 Sodium 135 L (136-145) mEq/L Potassium 3.3 L (3.5-4.5) mEq/L Chloride 96 L (98-109) mEq/L Carbon Dioxide 29 (19-29) mEq/L BUN 7 (7-20) mg/dL Creatinine 0.85 (0.57-1.11) mg/dL Glucose 99 (70-99) mg/dL Calcium 8.6 (8.6-10.8) mg/dL Triglycerides 208 H (< 150) mg/dL Calcium panel 02/13/17 Range/Units 03:55 Calcium 8.6 (8.6-10.8) mg/dL Phosphorus 3.9 (2.3-4.7) mg/dL Pituitary panel 02/13/17 Range/Units 03:55 Sodium 135 L (136-145) mEq/L Potassium 3.3 L (3.5-4.5) mEq/L Chloride 96 L (98-109) mEq/L Carbon Dioxide 29 (19-29) mEq/L BUN 7 (7-20) mg/dL Creatinine 0.85 (0.57-1.11) mg/dL Glucose 99 (70-99) mg/dL Calcium 8.6 (8.6-10.8) mg/dL Adrenal panel 02/13/17 Range/Units 03:55 Sodium 135 L (136-145) mEq/L Potassium 3.3 L (3.5-4.5) mEq/L Chloride 96 L (98-109) mEq/L Carbon Dioxide 29 (19-29) mEq/L BUN 7 (7-20) mg/dL Creatinine 0.85 (0.57-1.11) mg/dL Glucose 99 (70-99) mg/dL Calcium 8.6 (8.6-10.8) mg/dL - Imaging CT scan - abdomen: report reviewed CT scan - chest: report reviewed CT scan - pelvis: report reviewed Additional Studies: Abdomen/Pelvis CT 02/12/17 13:45 IMPRESSION: There is diffuse metastatic disease, with innumerable metastatic lesions throughout the liver and lungs bilaterally. There is also an area of masslike thickening seen within the distal esophageal lumen extending into the region of the gastric cardia, suspicious for esophageal or gastric carcinoma. There is also direct spread versus metastatic lymphadenopathy, with a large conglomeration of lymph nodes seen in the gastrohepatic ligament measuring 6.8 x 7.7 cm which abuts the gastric cardia. Metastatic periportal and retroperitoneal lymphadenopathy is also identified. Omental peritoneal caking is also seen with a small amount of possible malignant ascites noted in the pelvis. Questionable metastatic lesion also noted within the spleen versus a small cyst or hemangioma. There is mild left perinephric stranding, with a nonobstructive calculus in the lower pole of the left kidney. Cannot exclude a recently passed stone, with mild periureteral stranding seen proximally on the left. There is a small subcutaneous soft tissue lesions seen within the patient's back, just to the left of midline, which appears to abut the skin surface and may represent a small sebaceous cyst. A metastatic lesion is felt less likely though cannot be entirely excluded. There is an 8.3 mm nodule identified in the left thyroid lobe. Recommendations for follow-up as below, which in the setting of metastatic esophageal carcinoma, no follow-up or ultrasound is necessarily recommended unless clinically warranted. RECOMMENDATIONS: Managing Incidental Thyroid Nodule Detected at CT or MRI or US 1. Further evaluation by thyroid Ultrasound recommended for these incidental nodules: Patient Age 18 years or less - Any nodule. Patient Age 19-34 years old - Nodule 1 cm in size or greater Patient Age 35 years or more - Nodule 1.5 cm in size or greater 2. Follow up thyroid ultrasound also recommend in these scenarios -Solitary nodule with high risk imaging features (locally invasive nodule or suspicious lymph nodes) -Any nodule in a heterogeneous enlarged thyroid gland 3. NO further imaging is recommended in the following scenarios -No f/u imaging is recommended for ITNs not meeting the above criteria. -No US or f/u recommended for ITNs without high risk features in pts. with limited life expectancy or significant co-morbidities, unless clinically warranted. Note: These recommendations do not apply to pts. w/ increased risk for thyroid cancer or pts. with symptomatic thyroid disease. Recommendations for f/u of Incidental Thyroid Nodules (ITN) found on CT, MR, NM and Extrathyroidal US are based upon the ACR white paper and [place] 3-tiered system for managing ITNs: J Am Puneet Radiol. 2014;12(2): 143-50 D/ / Kavon Rico MD / Kavon Rico MD Interpreting Provider: Kavon Rico MD Chest CT 02/12/17 13:45 IMPRESSION: There is diffuse metastatic disease, with innumerable metastatic lesions throughout the liver and lungs bilaterally. There is also an area of masslike thickening seen within the distal esophageal lumen extending into the region of the gastric cardia, suspicious for esophageal or gastric carcinoma. There is also direct spread versus metastatic lymphadenopathy, with a large conglomeration of lymph nodes seen in the gastrohepatic ligament measuring 6.8 x 7.7 cm which abuts the gastric cardia. Metastatic periportal and retroperitoneal lymphadenopathy is also identified. Omental peritoneal caking is also seen with a small amount of possible malignant ascites noted in the pelvis. Questionable metastatic lesion also noted within the spleen versus a small cyst or hemangioma. There is mild left perinephric stranding, with a nonobstructive calculus in the lower pole of the left kidney. Cannot exclude a recently passed stone, with mild periureteral stranding seen proximally on the left. There is a small subcutaneous soft tissue lesions seen within the patient's back, just to the left of midline, which appears to abut the skin surface and may represent a small sebaceous cyst. A metastatic lesion is felt less likely though cannot be entirely excluded. There is an 8.3 mm nodule identified in the left thyroid lobe. Recommendations for follow-up as below, which in the setting of metastatic esophageal carcinoma, no follow-up or ultrasound is necessarily recommended unless clinically warranted. RECOMMENDATIONS: Managing Incidental Thyroid Nodule Detected at CT or MRI or US 1. Further evaluation by thyroid Ultrasound recommended for these incidental nodules: Patient Age 18 years or less - Any nodule. Patient Age 19-34 years old - Nodule 1 cm in size or greater Patient Age 35 years or more - Nodule 1.5 cm in size or greater 2. Follow up thyroid ultrasound also recommend in these scenarios -Solitary nodule with high risk imaging features (locally invasive nodule or suspicious lymph nodes) -Any nodule in a heterogeneous enlarged thyroid gland 3. NO further imaging is recommended in the following scenarios -No f/u imaging is recommended for ITNs not meeting the above criteria. -No US or f/u recommended for ITNs without high risk features in pts. with limited life expectancy or significant co-morbidities, unless clinically warranted. Note: These recommendations do not apply to pts. w/ increased risk for thyroid cancer or pts. with symptomatic thyroid disease. Recommendations for f/u of Incidental Thyroid Nodules (ITN) found on CT, MR, NM and Extrathyroidal US are based upon the ACR white paper and [place] 3-tiered system for managing ITNs: J Am Puneet Radiol. 2015 b;12(2): 143-50 D/ / Kavon Rico MD / Kavon Rico MD Interpreting Provider: Kavon Rico MD Consult Discharge Plan - Plan Referrals: Juany Coronado CNP [Primary Care Provider] - Daniel Rodrigues MD [Partnered Physician] - 02/19/17 3:10 pm - Attending Attestation I examined this patient and my medical decision-making was reviewed with the COMMERCIAL LOAN MANAGER/PA/Advanced Practice Nurse/Resident Physician. I agree with the documented findings, disposition and treatment plan as described except to the extent set forth below. I performed a physical examination and review of the assessment as mentioned above with the nurse practitioner present. Reviewed the results of the EGD which demonstrated a mass effect in the lower third of the esophagus extending into the upper stomach. I personally reviewed the CT scan images and report demonstrating multiple masses in the bilateral lung williamson as well as in the liver concerning for metastatic disease likely esophageal origin. Despite not having biopsy results the next most appropriate course would be to proceed with feeding tube placement due to the patient's 100 pound weight loss over several months and the dysphagia that she has been having with this pending diagnosis for esophageal cancer. I discussed the findings with oncology and they also believe that a port would be appropriate as well (even if the biopsy results did not come back as positive for cancer this would be due to sampling error since nothing else gives this appearance other than a metastatic process).
[2017-02-13] MEDS ORDERED: Clinimix E 5%-15% SOLUTION 2,000 ML with MVI, adult with vitamin K 10 ML IVC SCH (17:00)
[2017-02-13] MEDS: 0.9 % Sodium Chloride 1,000 ML IVC SCH (17:46)
[2017-02-13] MEDS: Nicotine 21 MG PATCH.TD24 TD SCH (19:05)
--- NOTE | 2017-02-13 23:17 | Anesthesia Evaluation PreOp ---
Date of Encounter: 02/14/17 Time of Encounter: 06:37 - Past History Planned Operation: PEG Tube, Possible A-Port Insertion Cardiac History: ND, CHF, Hyperlipidemia, Cardiac Surgery (CABG x 3 in 2005), Cardiac Stent (stents x 5) Pulmonary History: Smoker (40+ years), COPD, TERESE Dx [employer] History: Other (anxiety/depression) Other Medical History: Renal (CKD stage 3), Diabetes Type II, GERD Anesthesia History: No Prior Anesthetic Complications, Past Anesthesia Alcohol Use: none Drug use: none Medications and Allergies No Known Home Drugs 02/12/17 [History] Allergies fenofibrate Adverse Reaction (Verified 02/12/17 07:04) Muscle Pain metformin Adverse Reaction (Verified 02/12/17 07:04) Diarrhea Oxycodone [From OxyContin] Adverse Reaction (Verified 02/12/17 07:04) Hallucinating rosuvastatin [From Crestor] Adverse Reaction (Verified 02/12/17 07:04) Muscle Pain Ucybrih-Vnk-Wkw Reductase Inhibitor [Statins] Adverse Reaction (Verified 07:04) Muscle Pain - Meds/Allergy Pre-op Review Medications Reviewed: Yes Allergies Reviewed: Yes Beta Blockers on Current Med List: Yes (stopped all medications 3 months ago) Anesthesia Results - Labs 02/14/17 05:00 02/14/17 05:00 Laboratory Tests 02/12/17 09:37 PT 15.8 H INR 1.5 - Imaging Additional studies: 08/28/2012 Cath Findings/Interventions: Left Ventriculography - The overall left ventricular systolic function was normal. Left ventricular ejection fraction was 60-65%. Left Main Coronary Artery - There were no obstructing lesions in the left main coronary artery. Blood flow appeared normal. Left Anterior Descending Artery - The proximal left anterior descending artery was 100% occluded. Left Circumflex Artery - There was a 30 to 40% discrete stenosis in the proximal left circumflex artery. There was a 50% discrete stenosis in the proximal first obtuse marginal artery. The first obtuse marginal artery also had a known, chronic dissection throughout its length. Right Coronary Artery - The right coronary artery was dominant to the posterior circulation. The proximal right coronary artery was 100% occluded. Grafts - LAD Graft Graft #1 was engaged and an injection was performed. It was a left internal mammary artery graft with anastomosis at the mid left anterior descending artery. The graft is patent. - RCA Graft Graft #2 was engaged and an injection was performed. It was a saphenous vein graft with anastomosis at the distal right coronary artery. The graft is patent. Impression: Severe three vessel coronary artery disease s/p CABG. Patent left internal mammary artery graft to the left anterior descending artery. Patent saphenous vein graft to the right coronary artery. 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 The left ventricular ejection fraction was 60-65%. The overall left ventricular systolic function was normal. No change in the patient's anatomy compared to previous angiogram 07/2010. 08/03/2010 Cath Findings/Interventions: Left Ventriculography - The overall left ventricular systolic function was normal. Left ventricular ejection fraction was 60% by left ventriculogram. Left Anterior Descending Artery - The proximal left anterior descending artery was 100% occluded. Left Circumflex Artery - The preexisting stent in the proximal circumflex artery was patent. There was a 50% tubular stenosis from the proximal to mid first obtuse marginal artery - appears to be an old, healed dissection - normal flow. Right Coronary Artery - The right coronary artery was dominant to the posterior circulation. The proximal right coronary artery was 100% occluded. Grafts - LAD Graft Graft #1 was cannulated and injected. It was a left internal mammary artery graft with anastomosis at the mid left anterior descending artery. The graft is patent. There was a 50% stenosis in the proximal first diagonal artery. - RCA Graft Graft #2 was cannulated and injected. It was a saphenous vein graft with anastomosis at the distal right coronary artery. There was a 40% tubular stenosis in the proximal second graft. Impression: Triple vessel coronary artery disease. Patent left internal mammary artery graft to the left anterior descending artery. Patent saphenous vein graft to the right coronary artery. Patent pre-existing stent of the proximal LCx. 50% stenosis of the first obtuse marginal artery - appears to be an old dissection, well healed. The overall left ventricular systolic function was normal. The left ventricular ejection fraction was 60%. Anesthesia Exam Vital Signs/O2 Sat/Glucose, Most Recent Temp Pulse Resp BP Pulse Ox 98.3 F 70 18 112/57 95 02/14/17 06:31 02/14/17 06:31 02/14/17 06:31 02/14/17 06:31 02/14/17 06:31 Blood Glucose* 109 Height: 5'6''/1.68 m Weight: 243 lbs/110.223 kg NPO (# of Hours): 8 Pain Scale: 7 Pain Scale Used: Numeric (1 - 10) - HEENT Pupil (Motor): EOMI Mallampati: III Teeth: Edentulous Oral Opening: Greater than 3 - [employer] LOC: Oriented [employer] Motor: Normal RUE, Normal LUE, Normal RLE, Normal LLE, Normal Face [employer] Sensory: Normal: RUE, LUE, RLE, LLE, Face - Cardiac Rhythm: Regular Murmur: None - Pulmonary Breath Sounds: bilateral Clear Respiratory Effort: Symmetrical Anesthesia Assess/Plan ASA Score: 4 Modified [place] Scale for Level of Consciousness: Cooperative, oriented, and tranquil Anesthetic Plan: MAC Monitoring Plan: Standard Monitors Recovery Plan: PACU
[2017-02-14] MEDS: *HR* HYDROmorphone (PF) 1 MG/ML SYRINGE IVP PRN ×3 (01:42→23:08)
[2017-02-14 06:09] LABS: Basophils # 0.2 K/mcL (0.0-0.2); Basophils % 1.6 %; Eosinophils # 0.3 K/mcL (0.0-0.6); Eosinophils % 3.1 %; Hematocrit 38.6 % (35.3-44.9); Immature Granulocytes % 0.5 % (0-4); Lymphocytes # 1.7 K/mcL (0.6-4.6); Lymphocytes % 18.4 %; Mean Corpuscular HGB Conc 30.6 g/dL (31.6-35.5); Mean Corpuscular Hemoglobin 26.8 pg (28.0-33.3); Mean Corpuscular Volume 87.5 fL (83.0-100.0); Mean Platelet Volume 10.2 fL (9.4-12.4); Monocytes # 0.8 K/mcL (0.0-1.3); Monocytes % 8.7 %; Neutrophils # 6.3 K/mcL (1.6-8.9); Platelet Count 239 K/mcL (140-400); Red Blood Count 4.41 M/mcL (3.82-4.97); Red Cell Distribution Width 14.8 % (11.5-14.5); Segmented Neutrophils % 67.7 %
[2017-02-14 06:11] LABS: Hemoglobin 11.8 g/dL (11.5-15.4)
[2017-02-14] MEDS: *HR* Heparin 5,000 UNIT/ML VIAL SQ SCH (06:35)
[2017-02-14] MEDS: *HR* LORazepam 2 MG/ML VIAL IVP PRN (06:35)
[2017-02-14 06:39] LABS: BUN/Creatinine Ratio 14 (6-26); Blood Urea Nitrogen 11 mg/dL (7-20); Calcium 9.3 mg/dL (8.6-10.8); Carbon Dioxide 30 mEq/L (19-29); Chloride 98 mEq/L (98-109); Glucose 91 mg/dL (70-99); Osmolality,Calculated 281 (280-300); Potassium 3.3 mEq/L (3.5-4.5); Sodium 136 mEq/L (136-145); eGFR For African Americans > 60 (> 60); eGFR For Non-African Americans > 60 (> 60)
[2017-02-14] MEDS: Nicotine 21 MG PATCH.TD24 TD SCH (09:35)
[2017-02-14] MEDS: Pantoprazole 40 MG VIAL IVP SCH ×2 (09:35→20:34)
[2017-02-14] MEDS: Insulin LISPRO 300 UNITS/3 ML VIAL SQ SCH ×3 (11:00→20:34)
[2017-02-14] MEDS ORDERED: D10% in Water 500 ML IVC PRN ×2 (11:25→19:49)
[2017-02-14] MEDS ORDERED: Lidocaine/EPI 1:100k 1% 20 ML VIAL ONE (16:21)
[2017-02-14] MEDS ORDERED: Heparin 1,000 UNITS/500 mL NS 500 ML ONE (16:21)
[2017-02-14] MEDS ORDERED: *HR* Etomidate 40 MG/20 ML VIAL IVP ONE (16:23)
[2017-02-14] MEDS ORDERED: *HR* FentaNYL (PF) 100 MCG/2 ML VIAL ONE ×2 (16:23)
[2017-02-14] MEDS ORDERED: Ondansetron 4 MG/2 ML VIAL ONE (16:24)
[2017-02-14] MEDS ORDERED: Lidocaine -MPF 2% 2 ML VIAL ONE (16:24)
[2017-02-14] MEDS ORDERED: Dexamethasone 4 MG/ML VIAL ONE (16:24)
[2017-02-14] MEDS ORDERED: Lidocaine -MPF 4% 5 ML AMPUL ONE (16:27)
[2017-02-14] MEDS ORDERED: Clinimix E 5%-15% SOLUTION 2,000 ML with MVI, adult with vitamin K 10 ML IVC SCH ×2 (17:00→19:49)
[2017-02-14] MEDS ORDERED: *HR* Labetalol 100 MG/20 ML MDV IVP PRN ×2 (17:44→19:49)
[2017-02-14] MEDS ORDERED: *HR* HYDROmorphone (PF) 1 MG/ML SYRINGE IVP PRN ×2 (17:44→19:49)
[2017-02-14] MEDS ORDERED: Naloxone 0.4 MG/ML INJ IVP PRN ×2 (17:44→19:49)
[2017-02-14] MEDS ORDERED: *HR* Meperidine 25 MG/ML SYRINGE IVP PRN (17:44)
[2017-02-14] MEDS ORDERED: Albuterol 2.5 MG/3 ML NEBULIZER IH ONE (17:44)
[2017-02-14] MEDS ORDERED: Ondansetron 4 MG/2 ML VIAL IVP ONE (17:44)
--- NOTE | 2017-02-14 18:35 | Operative Note ---
Date of procedure: 02/14/17 Pre-op diagnosis: Esophageal mass with liver and lung metastasis Post-op diagnosis: same Procedure: 1. Right subclavian vein port placement. 2. PEG placement. Implants: 18FR PEG Anesthesia: RUDDYA Surgeon: Eduard Nobles Finance Administrator: Beatriz Negrete Condition: stable Disposition: PACU Procedure in Detail: Date of surgery: 02/14/17 After properly identifying the patient, the patient was brought to the operating room and placed in the supine position. After proper IV sedation was achieved followed by general endotracheal intubation, the patient's bilateral upper neck and chest was prepped and draped in a normal sterile fashion. A timeout was performed noting the patient's name and type of procedure to be performed. The patient was placed in a Trendelenburg position and the lateral one third of the right clavicle was identified and the right subclavian vein was accessed in this region via the Seldinger technique. A guidewire was advanced through the needle and fluoroscopy was used to verify positioning of the guidewire at the superior vena cava/atrial junction. A 15 blade scalpel was then used to make a horizontal incision at the level of the guidewire insertion site. A subcutaneous tissue pocket was created with Bovie cauterization and blunt dissection and a peel-away sheath and inner dilator were then brought onto the operative field. Fluoroscopy was used to guide the peel-away sheath and dilator over the guidewire into the position of the superior vena cava. The inner dilator was then removed as well as the guidewire and a port catheter was then brought onto the operative field. The catheter was advanced through the peel-away sheath and positioned at the superior vena cava/atrial junction. The peel-away sheath was then removed and the catheter was then connected to the port which was then placed in the subcutaneous tissue pocket and secured in place with a 3-0 Prolene suture. A port was tested for patency with easy blood withdrawal followed by infusion with heparinized saline solution followed by infusion of concentrated heparin. Subcutaneous tissue was reapproximated with a 3-0 Vicryl suture and the epidermal and dermal layers were reapproximated with a running 4-0 Monocryl suture. The incision was covered with Dermabond. The remaining portion of the procedure for the PEG tube placement is dictated in a separate note using the Provation system.
--- NOTE | 2017-02-14 19:17 | Anesthesia Evaluation Post Op ---
Date of Encounter: 02/14/17 Time of Encounter: 19:17 - Vital Signs Vital Signs: Vital Signs/O2 Sat, Most Current Temp Pulse Resp BP Pulse Ox 97.6 F 86 16 158/87 95 02/14/17 19:00 02/14/17 19:10 02/14/17 19:10 02/14/17 19:10 02/14/17 19:10 - Lungs Lungs: Clear Ascult./Percussion - Airway Airway: Non-obstructed - Cardiovascular Regular Rate - Mental Status Mental Status: Alert & Oriented, Answers Appropriately - Pain Pain Scale: 5 Pain Scale used: Numeric (1 - 10) - Nausea Vomiting Nausea Vomiting: Not Present - Hydration Hydration: NPO, Has not voided - Discharge PostOp Status: Transfer Patient to floor
[2017-02-14] MEDS ORDERED: *HR* Metoprolol 5 MG/5 ML VIAL IVP PRN (19:49)
[2017-02-14] MEDS ORDERED: Dextrose Gel 15 GM PO PRN ×2 (19:49)
[2017-02-14] MEDS ORDERED: *HR* Dextrose 50 % in Water (Syg) 50 ML SYRINGE IVP PRN (19:49)
[2017-02-14] MEDS: 0.9 % Sodium Chloride 1,000 ML IVC SCH (20:42)
[2017-02-15] MEDS: *HR* HYDROmorphone (PF) 1 MG/ML SYRINGE IVP PRN ×6 (00:34→20:16)
[2017-02-15] MEDS: *HR* LORazepam 2 MG/ML VIAL IVP PRN ×3 (00:35→20:15)
[2017-02-15 03:47] LABS: BUN/Creatinine Ratio 17 (6-26); Blood Urea Nitrogen 13 mg/dL (7-20); Calcium 9.2 mg/dL (8.6-10.8); Carbon Dioxide 27 mEq/L (19-29); Chloride 99 mEq/L (98-109); Glucose 172 mg/dL (70-99); Magnesium 1.5 mg/dL (1.6-2.6); Osmolality,Calculated 284 (280-300); Phosphorous 3.2 mg/dL (2.3-4.7); Potassium 4.1 mEq/L (3.5-4.5); Sodium 135 mEq/L (136-145); eGFR For African Americans > 60 (> 60); eGFR For Non-African Americans > 60 (> 60)
[2017-02-15] MEDS: Insulin LISPRO 300 UNITS/3 ML VIAL SQ SCH ×5 (04:12→19:42)
[2017-02-15] MEDS: *HR* Heparin 5,000 UNIT/ML VIAL SQ SCH ×2 (05:37→17:16)
[2017-02-15] MEDS: Pantoprazole 40 MG VIAL IVP SCH ×2 (08:36→20:15)
[2017-02-15] MEDS: Nicotine 21 MG PATCH.TD24 TD SCH (08:36)
[2017-02-15] MEDS: 0.9 % Sodium Chloride 1,000 ML IVC SCH (12:35)
[2017-02-15] MEDS ORDERED: Clinimix E 5%-15% SOLUTION 2,000 ML with MVI, adult with vitamin K 10 ML IVC SCH (17:00)
--- NOTE | 2017-02-15 18:51 | General Surgery Progress Note ---
Date of Encounter: 02/15/17 Time of Encounter: 16:15 - Assessment and Plan (1) Mass of esophagus Current Visit: Yes Status: Acute The patient excessively underwent a percutaneous PEG placement as well as a right subclavian vein port placement yesterday. 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 The patient states that apparently she refused to have any type of CT scan guided biopsy performed yesterday because no one told her what the biopsy was performed. At this time we will go ahead and plan for starting tube feeds at a slow continuous rate due to the fact she has had such a rapid loss of weight. We will guarded giving her pain medication through the G-tube to see if we can help better control her pain. She may be ready for conversion from continuous tube feeds to bolus feeds after this weekend. We will continue to closely follow. 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: without plisse machine operator use Qualified Code(s): E11.9 - Type 2 diabetes mellitus without complications (3) Obesity (BMI 30-39.9) Current Visit: Yes Status: Chronic (4) Sleep apnea Current Visit: Yes Status: Acute CPAP as needed Qualifiers: Sleep apnea type: obstructive Qualified Code(s): G47.33 - Obstructive sleep apnea (adult) (pediatric) (5) Hypertension Current Visit: Yes Status: Chronic Normotensive Continue to monitor and adjust as necessary Qualifiers: Hypertension type: essential hypertension Qualified Code(s): I10 - Essential (primary) hypertension (6) Coronary artery disease Current Visit: Yes Status: Chronic Qualifiers: Coronary Disease-Associated Artery/Lesion type: bypass graft [place] vs. transplanted heart: [place] heart Associated angina: without angina Qualified Code(s): I25.810 - Atherosclerosis of coronary artery bypass graft(s) without angina pectoris (7) DVT prophylaxis Current Visit: Yes Status: Acute Continue heparin 5,000 units SQ twice daily for DVT prophylaxis Subjective Patient reports: other (The patient does admit to some soreness at the PEG site. No nausea.) Objective Vital Signs - Last 8 Hours Temp Pulse Resp BP Pulse Ox 02/15/17 14:45 97.0 F L 75 18 133/81 93 L Intake and Output 02/15/17 02/15/17 02/15/17 07:59 15:59 23:59 Intake Total 525 / 525 1000 / 1000 Output Total 300 / 300 1250 / 1250 Balance 225 / 225 -250 / -250 Intake: IV Fluids 1000 / 1000 0.9 % Sodium Chloride 1, 1000 / 1000 000 ML @ 50 mls/hr IVC . Q20H [facility] Rx#:[id number] Oral 525 / 525 0 / 0 Output: Urine 300 / 300 1250 / 1250 Other: Meal Lunch Percent of Meal Consumed 0% # Bowel Movements 0 Weight 108.3 kg Blood Glucose* 157 Patient Weight 02/15/17 23:59 Weight 108.3 kg - General physical appearance well nourished, no distress - Neck Neck exam: other (Right upper chest site/port site CDI. No erythema present.) - Abdomen Abdomen: Present: soft, tender (noted around the PEG site. No erythema. No drainage.) - Labs 02/14/17 05:00 02/15/17 03:24 Diabetes panel 02/15/17 Range/Units 03:24 Sodium 135 L (136-145) mEq/L Potassium 4.1 (3.5-4.5) mEq/L Chloride 99 (98-109) mEq/L Carbon Dioxide 27 (19-29) mEq/L BUN 13 (7-20) mg/dL Creatinine 0.77 (0.57-1.11) mg/dL Glucose 172 H (70-99) mg/dL Calcium 9.2 (8.6-10.8) mg/dL Calcium panel 02/15/17 Range/Units 03:24 Calcium 9.2 (8.6-10.8) mg/dL Phosphorus 3.2 (2.3-4.7) mg/dL Pituitary panel 02/15/17 Range/Units 03:24 Sodium 135 L (136-145) mEq/L Potassium 4.1 (3.5-4.5) mEq/L Chloride 99 (98-109) mEq/L Carbon Dioxide 27 (19-29) mEq/L BUN 13 (7-20) mg/dL Creatinine 0.77 (0.57-1.11) mg/dL Glucose 172 H (70-99) mg/dL Calcium 9.2 (8.6-10.8) mg/dL Adrenal panel 02/15/17 Range/Units 03:24 Sodium 135 L (136-145) mEq/L Potassium 4.1 (3.5-4.5) mEq/L Chloride 99 (98-109) mEq/L Carbon Dioxide 27 (19-29) mEq/L BUN 13 (7-20) mg/dL Creatinine 0.77 (0.57-1.11) mg/dL Glucose 172 H (70-99) mg/dL Calcium 9.2 (8.6-10.8) mg/dL Consult Discharge Plan - Plan Referrals: Juany Coronado CNP [Primary Care Provider] - Daniel Rodrigues MD [Partnered Physician] - 02/19/17 3:10 pm
[2017-02-16] MEDS: *HR* HYDROmorphone (PF) 1 MG/ML SYRINGE IVP PRN ×5 (00:01→21:37)
[2017-02-16] MEDS: Insulin LISPRO 300 UNITS/3 ML VIAL SQ SCH ×7 (00:01→23:56)
[2017-02-16] MEDS: *HR* LORazepam 2 MG/ML VIAL IVP PRN (04:40)
[2017-02-16] MEDS: *HR* Heparin 5,000 UNIT/ML VIAL SQ SCH ×2 (05:47→18:27)
[2017-02-16] MEDS: Nicotine 21 MG PATCH.TD24 TD SCH (08:30)
[2017-02-16] MEDS: Pantoprazole 40 MG VIAL IVP SCH ×2 (08:30→21:38)
[2017-02-16] MEDS: 0.9 % Sodium Chloride 1,000 ML IVC SCH (08:56)
--- NOTE | 2017-02-16 10:37 | General Surgery Progress Note ---
Date of Encounter: 02/16/17 Time of Encounter: 10:36 - Assessment and Plan (1) Mass of esophagus Current Visit: Yes Status: Acute The patient is currently tolerating TFs at 45ml/hour. TPN at half rate and will likely be RI'ed today. Awaiting goal on TFs. Then will await recommendations for bolus TFs. Oxycodone liquid added for pain control. 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 use: without supervisor long goods use Qualified Code(s): E11.9 - Type 2 diabetes mellitus without complications (3) Obesity (BMI 30-39.9) Current Visit: Yes Status: Chronic (4) Sleep apnea Current Visit: Yes Status: Acute CPAP as needed Qualifiers: Sleep apnea type: obstructive Qualified Code(s): G47.33 - Obstructive sleep apnea (adult) (pediatric) (5) Hypertension Current Visit: Yes Status: Chronic Normotensive Continue to monitor and adjust as necessary Qualifiers: Hypertension type: essential hypertension Qualified Code(s): I10 - Essential (primary) hypertension (6) Coronary artery disease Current Visit: Yes Status: Chronic Qualifiers: Coronary Disease-Associated Artery/Lesion type: bypass graft [place] vs. transplanted heart: [place] heart Associated angina: without angina Qualified Code(s): I25.810 - Atherosclerosis of coronary artery bypass graft(s) without angina pectoris (7) DVT prophylaxis Current Visit: Yes Status: Acute Continue heparin 5,000 units SQ twice daily for DVT prophylaxis Subjective Patient reports: other (Admits to abdominal soreness around the PEg site. No nausea or vomiting. Patient on TFs at 45ml/hr.) Objective Vital Signs - Last 8 Hours Temp Pulse Resp BP Pulse Ox 02/16/17 09:00 98.7 F 73 18 147/71 93 L 02/16/17 04:29 97.5 F L 83 16 151/97 95 Intake and Output 02/15/17 02/16/17 02/16/17 23:59 07:59 15:59 Intake Total 120 / 120 1000 / 1000 Output Total 300 / 300 800 / 800 400 / 400 Balance -180 / -180 -800 / -800 600 / 600 Intake: IV Fluids 1000 / 1000 0.9 % Sodium Chloride 1, 1000 / 1000 000 ML @ 50 mls/hr IVC . Q20H [facility] Rx#:[id number] Free Water Intake Amount 120 / 120 Output: Urine 300 / 300 800 / 800 400 / 400 Other: Weight 107.2 kg Blood Glucose* 146 145 133 Patient Weight 02/16/17 23:59 Weight 107.2 kg - General physical appearance well nourished (Mild to moderate distress) - Respiratory other (Right upper chest incision CDI. No erythema.) - Abdomen Abdomen: Present: bowel sounds present (PEG in place. No erythema. NO drainage.), soft - Labs 02/14/17 05:00 02/15/17 03:24 Consult Discharge Plan - Plan Referrals: Juany Coronado CNP [Primary Care Provider] - Daniel Rodrigues MD [Partnered Physician] - 02/19/17 3:10 pm
[2017-02-16] MEDS: *HR* OxyCODONE Oral Soln 5 MG/5 ML UD.LIQ GTUBE PRN ×3 (12:32→23:58)
[2017-02-16] MEDS: Ondansetron 4 MG/2 ML VIAL IVP PRN ×2 (15:47→23:58)
[2017-02-17] MEDS: Insulin LISPRO 300 UNITS/3 ML VIAL SQ SCH ×6 (02:55→19:58)
[2017-02-17] MEDS: *HR* HYDROmorphone (PF) 1 MG/ML SYRINGE IVP PRN ×6 (03:28→21:04)
[2017-02-17] MEDS: 0.9 % Sodium Chloride 1,000 ML IVC SCH (03:33)
[2017-02-17] MEDS: Ondansetron 4 MG/2 ML VIAL IVP PRN ×3 (06:01→21:03)
[2017-02-17] MEDS: *HR* Heparin 5,000 UNIT/ML VIAL SQ SCH ×2 (06:01→17:52)
[2017-02-17] MEDS: Nicotine 21 MG PATCH.TD24 TD SCH (09:26)
[2017-02-17] MEDS: Pantoprazole 40 MG VIAL IVP SCH ×2 (09:27→21:03)
[2017-02-17] MEDS: *HR* LORazepam 2 MG/ML VIAL IVP PRN ×2 (09:27→21:04)
[2017-02-17] MEDS: *HR* OxyCODONE Oral Soln 5 MG/5 ML UD.LIQ GTUBE PRN ×2 (09:27→17:52)
--- NOTE | 2017-02-17 16:40 | General Surgery Progress Note ---
Date of Encounter: 02/17/17 Time of Encounter: 09:00 - Assessment and Plan (1) Mass of esophagus Current Visit: Yes Status: Acute The patient is currently tolerating TFs at 75ml/hour. Await recommendations for bolus TFs; although patient is unsure if she will be able to tolerate the amount at one time. Oxycodone liquid increased to 10ml q6 for pain control. (2) Diabetes mellitus Current Visit: Yes Status: Chronic blood sugar controlled Will continue to monitor Qualifiers: Diabetes mellitus type: type 2 Diabetes mellitus complication status: without complication Diabetes mellitus detention insulin use: without detention use Qualified Code(s): E11.9 - Type 2 diabetes mellitus without complications (3) Obesity (BMI 30-39.9) Current Visit: Yes Status: Chronic (4) Sleep apnea Current Visit: Yes Status: Acute CPAP as needed Qualifiers: Sleep apnea type: obstructive Qualified Code(s): G47.33 - Obstructive sleep apnea (adult) (pediatric) (5) Hypertension Current Visit: Yes Status: Chronic Normotensive Continue to monitor and adjust as necessary Qualifiers: Hypertension type: essential hypertension Qualified Code(s): I10 - Essential (primary) hypertension (6) Coronary artery disease Current Visit: Yes Status: Chronic Qualifiers: Coronary Disease-Associated Artery/Lesion type: bypass graft [place] vs. transplanted heart: [place] heart Associated angina: without angina Qualified Code(s): I25.810 - Atherosclerosis of coronary artery bypass graft(s) without angina pectoris (7) DVT prophylaxis Current Visit: Yes Status: Acute Continue heparin 5,000 units SQ twice daily for DVT prophylaxis Subjective Patient reports: other (Noted abdominal pain. Sharp and cramping. Positive flatus and BMs. No rectal bleeding.) Objective Vital Signs - Last 8 Hours Temp Pulse Resp BP Pulse Ox 02/17/17 10:31 98.6 F 74 18 119/75 94 L Intake and Output 02/17/17 02/17/17 02/17/17 07:59 15:59 23:59 Intake Total 1708 / 1708 420 / 420 Output Total 200 / 200 400 / 400 Balance 1508 / 1508 20 / 20 Intake: IV Fluids 1000 / 1000 300 / 300 0.9 % Sodium Chloride 1, 1000 / 1000 300 / 300 000 ML @ 50 mls/hr IVC . Q20H [facility] Rx#:[id number] Oral 558 / 558 Free Water Intake Amount 150 / 150 120 / 120 Output: Urine 200 / 200 400 / 400 Other: Stool Size Small Stool Consistency soft Stool Color Brown # Voids 1 # Bowel Movements 1 Weight 107.4 kg Blood Glucose* 138 118 Patient Weight 02/17/17 23:59 Weight 107.4 kg - General physical appearance well developed, other (occassional moderate pain) - Respiratory normal expansion - Abdomen Abdomen: Present: bowel sounds present, soft (positive upper abdominal pain. PEG CDI. NO erythema.) - Labs 02/14/17 05:00 02/15/17 03:24 Consult Discharge Plan - Plan Referrals: Juany Coronado CNP [Primary Care Provider] - Daniel Rodrigues MD [Partnered Physician] - 02/19/17 3:10 pm
[2017-02-18] MEDS: *HR* HYDROmorphone (PF) 1 MG/ML SYRINGE IVP PRN ×7 (00:06→22:00)
[2017-02-18] MEDS: *HR* Heparin 5,000 UNIT/ML VIAL SQ SCH ×2 (05:20→17:26)
[2017-02-18] MEDS: Insulin LISPRO 300 UNITS/3 ML VIAL SQ SCH ×4 (07:27→22:01)
[2017-02-18] MEDS: *HR* LORazepam 2 MG/ML VIAL IVP PRN ×2 (07:49→17:18)
[2017-02-18] MEDS: Pantoprazole 40 MG VIAL IVP SCH ×2 (07:50→21:53)
[2017-02-18] MEDS: Nicotine 21 MG PATCH.TD24 TD SCH (07:50)
[2017-02-18] MEDS: Ondansetron 4 MG/2 ML VIAL IVP PRN ×2 (07:50→14:09)
--- NOTE | 2017-02-18 07:53 | General Surgery Progress Note ---
Date of Encounter: 02/18/17 Time of Encounter: 07:51 - Assessment and Plan (1) Mass of esophagus Current Visit: Yes Status: Acute The patient is currently tolerating TFs at 75ml/hour. Await recommendations for bolus TFs. Due to continued pain will change the medication to 10 mg every 4 hours when necessary for pain. 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 long-term use Qualified Code(s): E11.9 - Type 2 diabetes mellitus without complications (3) Obesity (BMI 30-39.9) Current Visit: Yes Status: Chronic (4) Sleep apnea Current Visit: Yes Status: Acute CPAP as needed Qualifiers: Sleep apnea type: obstructive Qualified Code(s): G47.33 - Obstructive sleep apnea (adult) (pediatric) (5) Hypertension Current Visit: Yes Status: Chronic Normotensive Continue to monitor and adjust as necessary Qualifiers: Hypertension type: essential hypertension Qualified Code(s): I10 - Essential (primary) hypertension (6) Coronary artery disease Current Visit: Yes Status: Chronic Qualifiers: Coronary Disease-Associated Artery/Lesion type: bypass graft [place] vs. transplanted heart: [place] heart Associated angina: without angina Qualified Code(s): I25.810 - Atherosclerosis of coronary artery bypass graft(s) without angina pectoris (7) DVT prophylaxis Current Visit: Yes Status: Acute Continue heparin 5,000 units SQ twice daily for DVT prophylaxis Subjective Patient reports: other (Patient admits to continued upper abdominal pain. No nausea. Positive BM. ) Objective Vital Signs - Last 8 Hours Pulse Resp BP Pulse Ox 02/18/17 05:33 92 L 02/18/17 05:25 84 16 144/82 92 L Intake and Output 02/17/17 02/17/17 02/18/17 15:59 23:59 07:59 Intake Total 420 / 420 240 / 240 1420 / 1420 Output Total 400 / 400 650 / 650 0 / 0 Balance 20 / 20 -410 / -410 1420 / 1420 Intake: IV Fluids 300 / 300 0.9 % Sodium Chloride 1, 300 / 300 000 ML @ 50 mls/hr IVC . Q20H [facility] Rx#:[id number] Oral 0 / 0 100 / 100 Tube Feeding 1200 / 1200 Free Water Intake Amount 120 / 120 240 / 240 120 / 120 Output: Urine 400 / 400 650 / 650 0 / 0 Other: Meal Dinner # Voids 2 # Bowel Movements 0 Weight 107.3 kg Blood Glucose* 118 127 105 Patient Weight 02/18/17 23:59 Weight 107.3 kg - General physical appearance well developed, moderate distress - Abdomen Abdomen: Present: bowel sounds present, soft, tender (noted at level of PEG site. Site CDI without drainage.) - Psychiatric oriented to time, oriented to person, oriented to place - Labs 02/14/17 05:00 02/15/17 03:24 Consult Discharge Plan - Plan Referrals: Juany Coronado CNP [Primary Care Provider] - Daniel Rodrigues MD [Partnered Physician] - 02/19/17 3:10 pm
[2017-02-18] MEDS: *HR* OxyCODONE Oral Soln 5 MG/5 ML UD.LIQ GTUBE PRN (13:01)
[2017-02-18] MEDS: *HR* Promethazine 25 MG/ML VIAL IVP PRN (17:08)
[2017-02-19] MEDS: Ondansetron 4 MG/2 ML VIAL IVP PRN ×3 (04:30→23:46)
[2017-02-19] MEDS: *HR* HYDROmorphone (PF) 1 MG/ML SYRINGE IVP PRN ×6 (04:33→23:40)
[2017-02-19] MEDS: *HR* Heparin 5,000 UNIT/ML VIAL SQ SCH ×2 (06:22→17:45)
[2017-02-19] MEDS: Pantoprazole 40 MG VIAL IVP SCH ×2 (08:34→19:31)
[2017-02-19] MEDS: Nicotine 21 MG PATCH.TD24 TD SCH (08:34)
[2017-02-19] MEDS: Insulin LISPRO 300 UNITS/3 ML VIAL SQ SCH ×4 (08:54→20:57)
[2017-02-19] MEDS: *HR* LORazepam 2 MG/ML VIAL IVP PRN (14:56)
--- NOTE | 2017-02-19 17:28 | General Surgery Progress Note ---
Date of Encounter: 02/19/17 Time of Encounter: 17:26 - Assessment and Plan (1) Mass of esophagus Current Visit: Yes Status: Acute I discussed with the patient about additional options of trying a different formulation that is elemental in nature when may cause less GI symptoms. Willing to give this a try at a low rate at 15 mL an hour. Unfortunately, this type of tube feeds will not be able to be given as a bolus and will need to be given as a continuous drip either over [address] Rapp to return tomorrow and I will inform her of all that has been done during her absence. (2) Diabetes mellitus Current Visit: Yes Status: Chronic blood sugar controlled Will continue to monitor Qualifiers: Diabetes mellitus type: type 2 Diabetes mellitus complication status: without complication Diabetes mellitus retirement insulin use: without retirement use Qualified Code(s): E11.9 - Type 2 diabetes mellitus without complications (3) Obesity (BMI 30-39.9) Current Visit: Yes Status: Chronic (4) Sleep apnea Current Visit: Yes Status: Acute CPAP as needed Qualifiers: Sleep apnea type: obstructive Qualified Code(s): G47.33 - Obstructive sleep apnea (adult) (pediatric) (5) Hypertension Current Visit: Yes Status: Chronic Normotensive Continue to monitor and adjust as necessary Qualifiers: Hypertension type: essential hypertension Qualified Code(s): I10 - Essential (primary) hypertension (6) Coronary artery disease Current Visit: Yes Status: Chronic Qualifiers: Coronary Disease-Associated Artery/Lesion type: bypass graft [place] vs. transplanted heart: [place] heart Associated angina: without angina Qualified Code(s): I25.810 - Atherosclerosis of coronary artery bypass graft(s) without angina pectoris (7) DVT prophylaxis Current Visit: Yes Status: Acute Continue heparin 5,000 units SQ twice daily for DVT prophylaxis Subjective Patient reports: other (Patient refusing to let TFs be restarted. Noted pain with TFs and states her abdominal pain has resolved with stoppage.) Objective Vital Signs - Last 8 Hours Temp Pulse Resp BP Pulse Ox 02/19/17 14:40 98.0 F 79 18 97/54 97 02/19/17 11:38 98.7 F 78 18 128/77 91 L Intake and Output 02/19/17 02/19/17 02/19/17 07:59 15:59 23:59 Intake Total 0 / 0 520 / 520 Output Total 450 / 450 Balance 0 / 0 70 / 70 Intake: Oral 490 / 490 Free Water Intake Amount 0 / 0 Output: Urine 450 / 450 Other: Meal Lunch # Voids 1 Blood Glucose* 81 - General physical appearance well nourished, other (Tearful.) - Abdomen Abdomen: Present: bowel sounds present, soft (PEG site CDI.) - Labs 02/14/17 05:00 02/15/17 03:24 Consult Discharge Plan - Plan Referrals: Juany Coronado CNP [Primary Care Provider] - Daniel Rodrigues MD [Partnered Physician] - 02/21/17 10:10 am
[2017-02-20] MEDS: *HR* HYDROmorphone (PF) 1 MG/ML SYRINGE IVP PRN ×8 (01:59→22:16)
[2017-02-20] MEDS: *HR* Promethazine 25 MG/ML VIAL IVP PRN (01:59)
[2017-02-20] MEDS: *HR* Heparin 5,000 UNIT/ML VIAL SQ SCH ×2 (05:14→17:47)
[2017-02-20] MEDS: Ondansetron 4 MG/2 ML VIAL IVP PRN (07:35)
[2017-02-20] MEDS: Pantoprazole 40 MG VIAL IVP SCH ×2 (07:36→22:13)
[2017-02-20] MEDS: Nicotine 21 MG PATCH.TD24 TD SCH (07:36)
[2017-02-20] MEDS: Insulin LISPRO 300 UNITS/3 ML VIAL SQ SCH ×4 (07:41→22:08)
--- NOTE | 2017-02-20 09:00 | Oncology Inp Progress Note ---
Date of Encounter: 02/20/17 Time of Encounter: 08:59 Oncology: Subj Interval history: Patient seen and examined at bedside. Chart reviewed for interval details. Pathology from her recent esophageal biopsy confirmed esophageal cancer. HER-2 testing is pending. She decided to hold off on the liver biopsy at this time while she is process in her new diagnosis. She had a PEG tube and is about 3 02/14/[address] Nobles. I have been in discussion with Dr. Nobles regarding patient's clinical condition and interval. She has been on PEG feeding for nutritional support. Appreciate input from nutrition services. Her pain is controlled with her current regimen per hospital team. Overall, she is doing relatively well considering the circumstances. No new or acute issues. Review of systems: 12 point review of systems as noted above.All other systems are negative: Physical exam: Vital Signs Temp 98.0 F 02/20/17 08:16 Pulse 77 02/20/17 08:16 Resp 16 02/20/17 08:16 BP 110/68 02/20/17 08:16 Pulse Ox 93 L 02/20/17 08:16 GENERAL: Alert and oriented, lethargic appearing. Depressed affect. Skin: No rashes or petechiae. No evidence of skin malignancy Extremities: No edema. No calf swelling or tenderness. No joint deformity. Neurologic: Global weakness but no focal sensorimotor abnormalities. Results: Laboratory Last Values WBC 9.3 K/mcL (4.3-11.1) 02/14/17 05:00 RBC 4.41 M/mcL (3.82-4.97) 02/14/17 05:00 Hgb 11.8 g/dL (11.5-15.4) D 02/14/17 05:00 Hct 38.6 % (35.3-44.9) 02/14/17 05:00 MCV 87.5 fL (83.0-100.0) 02/14/17 05:00 MCH 26.8 pg (28.0-33.3) L 02/14/17 05:00 MCHC 30.6 g/dL (31.6-35.5) L 02/14/17 05:00 RDW 14.8 % (11.5-14.5) H 02/14/17 05:00 Plt Count 239 K/mcL (140-400) 02/14/17 05:00 MPV 10.2 fL (9.4-12.4) 02/14/17 05:00 Immature Gran % 0.5 % (0-4) 02/14/17 05:00 Seg Neutrophils % 67.7 % 02/14/17 05:00 Lymphocytes % 18.4 % 02/14/17 05:00 Monocytes % 8.7 % 02/14/17 05:00 Eosinophils % 3.1 % 02/14/17 05:00 Basophils % 1.6 % 02/14/17 05:00 Neutrophils # 6.3 K/mcL (1.6-8.9) 02/14/17 05:00 Lymphocytes # 1.7 K/mcL (0.6-4.6) 02/14/17 05:00 Monocytes # 0.8 K/mcL (0.0-1.3) 02/14/17 05:00 Eosinophils # 0.3 K/mcL (0.0-0.6) 02/14/17 05:00 Basophils # 0.2 K/mcL (0.0-0.2) 02/14/17 05:00 Immature Plt Fraction 5.4 % (1.1-6.1) 02/12/17 09:37 PT 15.8 Seconds (9.4-12.1) H 02/12/17 09:37 INR 1.5 02/12/17 09:37 Sodium 135 mEq/L (136-145) L 02/15/17 03:24 Potassium 4.1 mEq/L (3.5-4.5) 02/15/17 03:24 Chloride 99 mEq/L (98-109) 02/15/17 03:24 Carbon Dioxide 27 mEq/L (19-29) 02/15/17 03:24 BUN 13 mg/dL (7-20) 02/15/17 03:24 Creatinine 0.77 mg/dL (0.57-1.11) 02/15/17 03:24 Est GFR ( Amer) > 60 (> 60) 02/15/17 03:24 Est GFR (Non-Af Amer) > 60 (> 60) 02/15/17 03:24 BUN/Creatinine Ratio 17 (6-26) 02/15/17 03:24 Glucose 172 mg/dL (70-99) H 02/15/17 03:24 POC Glucose 80 (58-89) 02/20/17 07:37 Calculated Osmolality 284 (280-300) 02/15/17 03:24 Calcium 9.2 mg/dL (8.6-10.8) 02/15/17 03:24 Ionized Calcium 1.11 mmol/L (1.15-1.35) L 02/13/17 03:55 Phosphorus 3.2 mg/dL (2.3-4.7) 02/15/17 03:24 Magnesium 1.5 mg/dL (1.6-2.6) L 02/15/17 03:24 Total Bilirubin 1.4 mg/dL (0.2-1.2) H 02/12/17 09:37 Direct Bilirubin 0.8 mg/dL (0.0-0.5) H 02/12/17 09:37 Indirect Bilirubin 0.6 mg/dL (0.0-1.2) 02/12/17 09:37 AST 21 Units/L (5-34) 02/12/17 09:37 ALT 7 Units/L (0-55) 02/12/17 09:37 Alkaline Phosphatase 171 Units/L (38-126) H 02/12/17 09:37 Serum Total Protein 6.4 g/dL (6.0-8.3) 02/12/17 09:37 Albumin 2.9 g/dL (3.5-5.0) L 02/12/17 09:37 Globulin 3.5 g/dL (2.4-3.5) 02/12/17 09:37 Albumin/Globulin Ratio 0.8 (1.1-2.2) L 02/12/17 09:37 Prealbumin 7.0 mg/dL (16.0-38.0) L 02/12/17 09:37 Triglycerides 208 mg/dL (< 150) H 02/13/17 03:55 Impression/recommendations: 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 I reviewed with the patient the natural history of metastatic esophageal cancer and we discussed NCCN guidelines for management of what appears to be metastatic esophageal cancer. She understands that is an incurable malignancy but we also discussed options for treatment including systemic therapy and targeted therapies. Based on above, I think is reasonable to obtain a biopsy of her liver lesion by IR for confirmation. Given her well-preserved physical performance status, she will be an appropriate candidate for systemic therapy if she is interested in antineoplastic therapy. We again discussed that given her incurable nature of her malignancy, nonaggressive, comfort only measures such as palliative care/hospice and not unreasonable. She is more inclined towards antineoplastic therapy which I think is reasonable given her relatively young age and well preserved physical performance status. I agree with ongoing supportive measures which appear to be adequately palliated in her symptoms. She has a follow-up appointment with me in the office tomorrow but I do not and especially able to make that appointment given her current condition and we will reschedule that for some time early to mid next week for further discussion regarding her diagnosis and treatment planning. Appreciate help from Dr. Nobles with [id number] placement which should facilitate her treatment. Progressive dysphagia associated with weight loss: She now has a PEG tube for nutritional support and is currently working with the hospital team regarding details of home tube feeding for nutritional support. I did inform her that based on my review of her chest, I think the option of running her tube feeding through the night may be a very reasonable option for her from a quality of life standpoint since that would allow her to be functional during today. Thank you for your excellent ongoing care for allowing us to see her while in- house. This report was created using voice recognition software and may contain errors. It was signed but not edited to expedite communication. - Constitutional Vitals: Vital Signs Temp Pulse Resp BP Pulse Ox 02/20/17 08:16 98.0 F 77 16 110/68 93 L 02/19/17 23:01 99.0 F 78 14 111/65 92 L 02/19/17 18:55 98.8 F 86 14 120/77 90 L 02/19/17 14:40 98.0 F 79 18 97/54 97 02/19/17 11:38 98.7 F 78 18 128/77 91 L Intake and Output 02/19/17 02/20/17 02/20/17 16:59 00:59 08:59 Intake Total 490 / 490 30 / 30 0 / 0 Output Total 450 / 450 300 / 300 500 / 500 Balance 40 / 40 -270 / -270 -500 / -500 Intake: Oral 490 / 490 0 / 0 0 / 0 Free Water Intake Amount 0 / 0 Output: Urine 450 / 450 300 / 300 500 / 500 Other: Meal Lunch refused dinner Blood Glucose* 105 80 Oncology: Obj Data - Labs CBC & Chem 7: 02/14/17 05:00 02/15/17 03:24 Labs: Laboratory Results - last 24 hr 02/19/17 02/20/17 19:01 07:37 POC Glucose 105 H 80 - ABG Interpretation ABG results: PT/INR, D-dimer PT 15.8 Seconds (9.4-12.1) H 02/12/17 09:37 Consult Discharge Plan - Plan Referrals: Juany Coronado CNP [Primary Care Provider] - Daniel Rodrigues MD [Partnered Physician] - 03/06/17 8:30 am
[2017-02-20] MEDS: *HR* LORazepam 2 MG/ML VIAL IVP PRN (12:23)
--- NOTE | 2017-02-20 12:47 | General Surgery Progress Note ---
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 mellitus terminal gauger insulin use: without snf use Qualified Code(s): E11.9 - Type 2 diabetes mellitus without complications (3) Obesity (BMI 30-39.9) Current Visit: Yes Status: Chronic (4) Sleep apnea Current Visit: Yes Status: Acute CPAP as needed Qualifiers: Sleep apnea type: obstructive Qualified Code(s): G47.33 - Obstructive sleep apnea (adult) (pediatric) (5) Hypertension Current Visit: Yes Status: Chronic Normotensive Continue to monitor and adjust as necessary Qualifiers: Hypertension type: essential hypertension Qualified Code(s): I10 - Essential (primary) hypertension (6) Coronary artery disease Current Visit: Yes Status: Chronic Qualifiers: Coronary Disease-Associated Artery/Lesion type: bypass graft [place] vs. transplanted heart: [place] heart Associated angina: without angina Qualified Code(s): I25.810 - Atherosclerosis of coronary artery bypass graft(s) without angina pectoris (7) Depression Current Visit: Yes Status: Acute Start on Celexa via peg tube today Qualifiers: Depression Type: unspecified Qualified Code(s): F32.9 - Major depressive disorder, single episode, unspecified (8) DVT prophylaxis Current Visit: Yes Status: Acute Continue heparin 5,000 units SQ twice daily for DVT prophylaxis Subjective Patient reports: no new complaints, voiding w/o difficulty, flatus, bowel movement, nausea, afebrile, other (Tolerating Vital tube feeds at 15ml/hour; patient lethargic) Narrative: patient really denies complaints, wont really wake up to speak with us states she did seem to tolerate the vital tube feed overnight Objective Vital Signs - Last 8 Hours Temp Pulse Resp BP Pulse Ox 02/20/17 08:16 98.0 F 77 16 110/68 93 L Intake and Output 02/19/17 02/20/17 02/20/17 23:59 07:59 15:59 Intake Total 0 / 0 Output Total 300 / 300 500 / 500 Balance -270 / -270 -500 / -500 Intake: Oral 0 / 0 0 / 0 Free Water Intake Amount Output: Urine 300 / 300 500 / 500 Other: Meal refused dinner Blood Glucose* 105 80 100 - General physical appearance well developed, no distress, obese - Eyes normal ocular movement - ENT normal mucosa, atraumatic, normocephalic - Neck Neck exam: trachea midline - Respiratory normal respiratory effort, clear to auscultation - Cardiovascular Cardiovascular exam: Present: RRR - Abdomen Abdomen: Present: bowel sounds present, soft, tender (at peg site), wound (Peg tube secure with tube feeds at 15ml/hour) - Incision Incision: Present: clean and dry, intact - Integumentary no rash, no growths - Neurologic CN 2-12 grossly intact - Psychiatric oriented to time, oriented to person, oriented to place, speech is normal, memory intact - Labs 02/14/17 05:00 02/15/17 03:24 Consult Discharge Plan - Plan Referrals: Juany Coronado CNP [Primary Care Provider] - Daniel Rodrigues MD [Partnered Physician] - 03/06/17 8:30 am - Attending Attestation I examined this patient and my medical decision-making was reviewed with the PHOSPHORIC ACID SUPERVISOR/PA/Advanced Practice Nurse/Resident Physician. I agree with the documented findings, disposition and treatment plan as described except to the extent set forth below. I examined this patient and my medical decision-making was reviewed with the PHOSPHORIC ACID SUPERVISOR/PA/Advanced Practice Nurse/Resident Physician. I agree with the documented findings, disposition and treatment plan as described except to the extent set forth below.
[2017-02-21] MEDS: Ondansetron 4 MG/2 ML VIAL IVP PRN ×3 (04:06→18:09)
[2017-02-21] MEDS: *HR* HYDROmorphone (PF) 1 MG/ML SYRINGE IVP PRN ×3 (04:25→18:09)
[2017-02-21] MEDS: *HR* Heparin 5,000 UNIT/ML VIAL SQ SCH (06:35)
[2017-02-21] MEDS: Nicotine 21 MG PATCH.TD24 TD SCH (09:01)
[2017-02-21] MEDS: *HR* LORazepam 2 MG/ML VIAL IVP PRN (09:01)
[2017-02-21] MEDS: Pantoprazole 40 MG VIAL IVP SCH (09:01)
[2017-02-21] MEDS: Insulin LISPRO 300 UNITS/3 ML VIAL SQ SCH ×2 (09:01→11:20)
[2017-02-21] MEDS: *HR* OxyCODONE Oral Soln 5 MG/5 ML UD.LIQ GTUBE PRN (11:04)
--- NOTE | 2017-02-21 15:24 | Discharge Summary ---
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 Qualified Code(s): E11.9 - Type 2 diabetes mellitus without complications (3) Obesity (BMI 30-39.9) Priority: Secondary Status: Chronic (4) Sleep apnea Priority: Secondary Status: Chronic Qualifiers: Sleep apnea type: obstructive Qualified Code(s): G47.33 - Obstructive sleep apnea (adult) (pediatric) (5) Hypertension Priority: Secondary Status: Chronic Qualifiers: Hypertension type: essential hypertension Qualified Code(s): I10 - Essential (primary) hypertension (6) Coronary artery disease Priority: Secondary Status: Chronic Qualifiers: Coronary Disease-Associated Artery/Lesion type: bypass graft [place] vs. transplanted heart: [place] heart Associated angina: without angina Qualified Code(s): I25.810 - Atherosclerosis of coronary artery bypass graft(s) without angina pectoris (7) Depression Priority: Secondary Status: Acute Qualifiers: Depression Type: unspecified Qualified Code(s): F32.9 - Major depressive disorder, single episode, unspecified (8) DVT prophylaxis Priority: Secondary Status: Acute - Discharge Medications Prescriptions: Loperamide [Imodium] 2 mg PO Q4HR PRN #60 capsule PRN Reason: Diarrhea Ondansetron ODT [Zofran ODT] 4 mg SL Q4HR #120 tab.rapdis Citalopram [CeleXA] 20 mg GTUBE DAILY #30 tablet Lactose-Reduced Food [Ensure Enlive] 237 ml PO TID #90 liquid OxyCODONE Oral Soln [OxyCODONE ORAL SOLN] 10 mg GTUBE Q4H PRN #420 ml PRN Reason: Moderate Pain Home Medications: Citalopram [CeleXA] 20 mg GTUBE DAILY #30 tablet 02/21/17 [Rx] Lactose-Reduced Food [Ensure Enlive] 237 ml PO TID #90 liquid 02/21/17 [Rx] Loperamide [Imodium] 2 mg PO Q4HR PRN #60 capsule 02/21/17 [Rx] Ondansetron ODT [Zofran ODT] 4 mg SL Q4HR #120 tab.rapdis 02/21/17 [Rx] OxyCODONE Oral Soln [OxyCODONE ORAL SOLN] 10 mg GTUBE Q4H PRN #420 ml 02/21/17 [ Rx] Allergies/Adverse Reactions: Allergies fenofibrate Adverse Reaction (Verified 02/12/17 07:04) Muscle Pain metformin Adverse Reaction (Verified 02/12/17 07:04) Diarrhea Oxycodone [From OxyContin] Adverse Reaction (Verified 02/12/17 07:04) Hallucinating rosuvastatin [From Crestor] Adverse Reaction (Verified 02/12/17 07:04) Muscle Pain Mvbdrhp-Baf-Udy Reductase Inhibitor [Statins] Adverse Reaction (Verified 07:04) Muscle Pain General Surgery Exam Initial Vital Signs Temp Pulse Resp BP Pulse Ox 98.8 F 87 18 140/82 92 L 02/12/17 06:45 02/12/17 06:45 02/12/17 06:45 02/12/17 06:45 02/12/17 06:45 - General physical appearance well developed, no distress, moderate pain - Eyes normal ocular movement - ENT normal mucosa, atraumatic, normocephalic - Neck trachea midline - Respiratory normal respiratory effort, clear to auscultation - Cardiovascular Cardiovascular exam: Present: RRR - Abdomen Abdomen general surgery: Present: bowel sounds present, soft, tender, wound ( peg tube secure) Abdominal Tenderness: Present: epigastic - Incision Incision: Present: clean and dry, intact - Integumentary Integumentary general surgery: Present: warm and dry - Neurologic Present: CN 2-12 grossly intact - Psychiatric Psychiatric general surgery: Present: appropriate, oriented to person, oriented to place, oriented to time, speech is normal, memory intact Date of admission: 02/12/17 14:08 Primary care physician: Juany Coronado CNP Consults: 02/12/17 09:26 Consult to Oncology [CONS] Routine Consulting Provider: [facility] Reason for Consult: esophageal mass Time Notified: 09:27 Call Completed: Yes 02/12/17 09:28 Consult to Nutrition [CONS] Routine Comment: start TPN today please Consulting Provider: NUTRITION Reason for Dietary Consult: TPN Start and Manage 02/13/17 08:40 Consult to Grated Cheese Maker [CONS] Routine Reason for SW Consult: discharge planning; new cancer diagnosis 02/15/17 10:35 dietary consult [Consult to Nutrition] [CONS] Routine Comment: Consulting Provider: NUTRITION Reason for Dietary Consult: TF Start and Manage Other:: Goal is to transition to bolus feeds Discharging clinician: Reny Rapp ([facility]) Anticipated date of discharge: 02/21/17 - Patient Status Disposition: Home Health Service Condition: Fair Functional capacity at discharge: independent ambulation Overall status at discharge: patient is not back to baseline - Discharge Instructions Follow Up With: Daniel Rodrigues MD [Partnered Physician] - 03/06/17 8:30 am Juany Coronado CNP [Primary Care Provider] - (1 week hospital follow-up) - Diet and Activity Activity: increase activity as tolerated Diet: other (thin, liquid diet) - Hospital Course Hospital course: Ms. Serra is a 61 year old female admitted to the hospital for work-up after undergoing an EGD with Dr. Rapp which revealed a large distal esophageal mass. She did have a CT which shows evidence of metastatic disease. After prolonged discussion, the patient was agreeable to peg tube placement and A-port insertion. Oncology was consulted and will follow-up as outpatient. The patient did not tolerate Jevity bolus feeds due to abdominal cramping and excess diarrhea. The patient has been trialing tube feeds and is currently tolerating vital 1.5 at a low, continuous rate. We will begin discharge planning to home and transition to osmolite feeding via bolus/pump (pending what patient will tolerate). Plan for home health care to assist with transition to home. - Time Spent with Patient Total time spent providing and/or coordinating discharge services: Greater than 30 minutes Labs on day of discharge: Labs from last 24 hours 02/21/17 02/21/17 02/20/17 11:20 07:56 20:30 POC Glucose 85 99 H 114 H HER-2/sam Gene Amplif 02/20/17 02/20/17 02/12/17 15:47 12:01 12:00 POC Glucose 96 H 100 H HER-2/sam Gene Amplif SEE NOTE - Impressions ITS Impressions Abdomen/Pelvis CT 02/12/17 13:45 IMPRESSION: There is diffuse metastatic disease, with innumerable metastatic lesions throughout the liver and lungs bilaterally. There is also an area of masslike thickening seen within the distal esophageal lumen extending into the region of the gastric cardia, suspicious for esophageal or gastric carcinoma. There is also direct spread versus metastatic lymphadenopathy, with a large conglomeration of lymph nodes seen in the gastrohepatic ligament measuring 6.8 x 7.7 cm which abuts the gastric cardia. Metastatic periportal and retroperitoneal lymphadenopathy is also identified. Omental peritoneal caking is also seen with a small amount of possible malignant ascites noted in the pelvis. Questionable metastatic lesion also noted within the spleen versus a small cyst or hemangioma. There is mild left perinephric stranding, with a nonobstructive calculus in the lower pole of the left kidney. Cannot exclude a recently passed stone, with mild periureteral stranding seen proximally on the left. There is a small subcutaneous soft tissue lesions seen within the patient's back, just to the left of midline, which appears to abut the skin surface and may represent a small sebaceous cyst. A metastatic lesion is felt less likely though cannot be entirely excluded. There is an 8.3 mm nodule identified in the left thyroid lobe. Recommendations for follow-up as below, which in the setting of metastatic esophageal carcinoma, no follow-up or ultrasound is necessarily recommended unless clinically warranted. RECOMMENDATIONS: Managing Incidental Thyroid Nodule Detected at CT or MRI or US 1. Further evaluation by thyroid Ultrasound recommended for these incidental nodules: Patient Age 18 years or less - Any nodule. Patient Age 19-34 years old - Nodule 1 cm in size or greater Patient Age 35 years or more - Nodule 1.5 cm in size or greater 2. Follow up thyroid ultrasound also recommend in these scenarios -Solitary nodule with high risk imaging features (locally invasive nodule or suspicious lymph nodes) -Any nodule in a heterogeneous enlarged thyroid gland 3. NO further imaging is recommended in the following scenarios -No f/u imaging is recommended for ITNs not meeting the above criteria. -No US or f/u recommended for ITNs without high risk features in pts. with limited life expectancy or significant co-morbidities, unless clinically warranted. Note: These recommendations do not apply to pts. w/ increased risk for thyroid cancer or pts. with symptomatic thyroid disease. Recommendations for f/u of Incidental Thyroid Nodules (ITN) found on CT, MR, NM and Extrathyroidal US are based upon the ACR white paper and [place] 3-tiered system for managing ITNs: J Am Puneet Radiol. 2014;12(2): 143-50 D/ / Kavon Rico MD / Kavon Rico MD Interpreting Provider: Kavon Rico MD Chest CT 02/12/17 13:45 IMPRESSION: There is diffuse metastatic disease, with innumerable metastatic lesions throughout the liver and lungs bilaterally. There is also an area of masslike thickening seen within the distal esophageal lumen extending into the region of the gastric cardia, suspicious for esophageal or gastric carcinoma. There is also direct spread versus metastatic lymphadenopathy, with a large conglomeration of lymph nodes seen in the gastrohepatic ligament measuring 6.8 x 7.7 cm which abuts the gastric cardia. Metastatic periportal and retroperitoneal lymphadenopathy is also identified. Omental peritoneal caking is also seen with a small amount of possible malignant ascites noted in the pelvis. Questionable metastatic lesion also noted within the spleen versus a small cyst or hemangioma. There is mild left perinephric stranding, with a nonobstructive calculus in the lower pole of the left kidney. Cannot exclude a recently passed stone, with mild periureteral stranding seen proximally on the left. There is a small subcutaneous soft tissue lesions seen within the patient's back, just to the left of midline, which appears to abut the skin surface and may represent a small sebaceous cyst. A metastatic lesion is felt less likely though cannot be entirely excluded. There is an 8.3 mm nodule identified in the left thyroid lobe. Recommendations for follow-up as below, which in the setting of metastatic esophageal carcinoma, no follow-up or ultrasound is necessarily recommended unless clinically warranted. RECOMMENDATIONS: Managing Incidental Thyroid Nodule Detected at CT or MRI or US 1. Further evaluation by thyroid Ultrasound recommended for these incidental nodules: Patient Age 18 years or less - Any nodule. Patient Age 19-34 years old - Nodule 1 cm in size or greater Patient Age 35 years or more - Nodule 1.5 cm in size or greater 2. Follow up thyroid ultrasound also recommend in these scenarios -Solitary nodule with high risk imaging features (locally invasive nodule or suspicious lymph nodes) -Any nodule in a heterogeneous enlarged thyroid gland 3. NO further imaging is recommended in the following scenarios -No f/u imaging is recommended for ITNs not meeting the above criteria. -No US or f/u recommended for ITNs without high risk features in pts. with limited life expectancy or significant co-morbidities, unless clinically warranted. Note: These recommendations do not apply to pts. w/ increased risk for thyroid cancer or pts. with symptomatic thyroid disease. Recommendations for f/u of Incidental Thyroid Nodules (ITN) found on CT, MR, NM and Extrathyroidal US are based upon the ACR white paper and [place] 3-tiered system for managing ITNs: J Am Puneet Radiol. 2015 Dec;12(2): 143-50 D/ / Kavon Rico MD / Kavon Rico MD Interpreting Provider: Kavon Rico MD Chest X-Ray 02/14/17 18:00 IMPRESSION: Interval placement of a right chest Port-A-Cath terminating in the superior vena cava. No pneumothorax. D/ / Lance Lyons MD / Lance Lyons MD Interpreting Provider: Lance Lyons MD
--- NOTE | 2017-02-21 16:00 | Physician Discharge Referral ---
Home Health/Hosp Referral Info Transfer to: Home Health Attending Provider: Dr. Reny Rapp Provider in Charge Post Discharge: PCP - Diagnosis (1) Mass of esophagus Priority: Primary Status: Acute (2) Diabetes mellitus Priority: Secondary Status: Chronic (3) Obesity (BMI 30-39.9) Priority: Secondary Status: Chronic (4) Sleep apnea Priority: Secondary Status: Chronic (5) Hypertension Priority: Secondary Status: Chronic (6) Coronary artery disease Priority: Secondary Status: Chronic (7) Depression Priority: Secondary Status: Acute (8) DVT prophylaxis Priority: Secondary Status: Acute - Respiratory Orders None Smoking Cessation: Smoking cessation has been advised. For more information, call the [place] Tobacco Quit Line at 1-589-GNKO-NOW. - Dressing/Wound Care Site: Peg tube site Type of Dressing/Treatments w/Frequency: Cleanse with soap and water and pat dry daily, may apply split 4X4 gauze to tube daily and as needed. - Diet/Nutrition Diet/Nutrition: List: thin liquid diet only Enlive protein supplements TID- Rx written - Activity Activity Orders: Up ad mary jo - Services Needed Following services are medically necessary services: Nursing, Home Health Aide Home Care Orders: Feeding tube management and education - Transfer Medications Prescriptions: Loperamide [Imodium] 2 mg PO Q4HR PRN #60 capsule PRN Reason: Diarrhea Ondansetron ODT [Zofran ODT] 4 mg SL Q4HR #120 tab.rapdis Citalopram [CeleXA] 20 mg GTUBE DAILY #30 tablet Lactose-Reduced Food [Ensure Enlive] 237 ml PO TID #90 liquid OxyCODONE Oral Soln [OxyCODONE ORAL SOLN] 10 mg GTUBE Q4H PRN #420 ml PRN Reason: Moderate Pain Home Medications: Citalopram [CeleXA] 20 mg GTUBE DAILY #30 tablet 02/21/17 [Rx] Lactose-Reduced Food [Ensure Enlive] 237 ml PO TID #90 liquid 02/21/17 [Rx] Loperamide [Imodium] 2 mg PO Q4HR PRN #60 capsule 02/21/17 [Rx] Ondansetron ODT [Zofran ODT] 4 mg SL Q4HR #120 tab.rapdis 02/21/17 [Rx] OxyCODONE Oral Soln [OxyCODONE ORAL SOLN] 10 mg GTUBE Q4H PRN #420 ml 02/21/17 [ Rx] Allergies/Adverse Reactions: Allergies fenofibrate Adverse Reaction (Verified 02/12/17 07:04) Muscle Pain metformin Adverse Reaction (Verified 02/12/17 07:04) Diarrhea Oxycodone [From OxyContin] Adverse Reaction (Verified 02/12/17 07:04) Hallucinating rosuvastatin [From Crestor] Adverse Reaction (Verified 02/12/17 07:04) Muscle Pain Mfrfjwf-Qpz-Wiz Reductase Inhibitor [Statins] Adverse Reaction (Verified 07:04) Muscle Pain Certification: Further, I certify that my clinical findings support that this patient is homebound (i.e. absences from home require considerable and taxing effort and are for medical reasons or synagogue services or infrequently or short duration when for other reasons) because: Homebound Reason: Patient requires assistance of a person or device to safely leave home, Leaving home requires considerable and taxing effort due to condition Attestation: My signature below is to certify that this patient is under my care and that I, or nurse practitioner, or a physician's housekeeping assistant working with me, has a face-to -face encounter with this patient.
[2017-02-21 16:36] VITALS: BP 108/57
== END 2017-02-21 18:35 | disposition home health service (06) | DRG 375 ==
LOC: SAMDAY 06:23 → 3ANU 09:05
PROVIDERS: ADMIT Surgery; ATTEND Surgery
PROC: ENDOEBX (2017-02-12 07:45)